=== PATIENT | male | born 1950 | race Caucasian/White ===

== ENCOUNTER 2017-07-13 11:40 | Inpatient (IN) | payer MEDICARE ==
[~2017-07-13] VITALS: Ht 188 cm; Wt 133.3 kg
[~2017-07-13 11:40] MED LIST: AMLO10 PO; ASPI81CH PO; FISH1000 PO; OLME40 PO
[2017-07-13 12:00] LABS: Chloride (POC) 104 mmol/L (98-108); Creatinine (POC) 1.1 mg/dL (0.8-1.3); Glucose (ISTAT POC) 98 mg/dL (70-99); Hemoglobin (POC) 16.7 g/dL (13.5-17.5); Potassium (POC) 3.6 mmol/L (3.5-5.5); Sodium (POC) 143 mmol/L (135-148); Total CO2 (POC) 27 mmol/L (21-32)
[2017-07-13 12:31] LABS: BASOPHILS ABSOLUTE AUTO 0.06 K/mm3 (0.00-0.23); BASOPHILS PERCENT AUTO 1 % (0-2); EOSINOPHILS ABSOLUTE AUTO 0.09 K/mm3 (0.00-0.68); EOSINOPHILS PERCENT AUTO 1 % (0-6); Hematocrit 45.7 % (37.0-53.0); Hemoglobin 15.4 g/dL (13.5-17.5); IMMATURE GRAN ABSOLUTE AUTO 0.01 K/mm3 (0.00-0.10); IMMATURE GRAN PERCENT AUTO 0 % (0-1); LYMPHOCYTES ABSOLUTE AUTO 2.73 K/mm3 (0.84-5.20); LYMPHOCYTES PERCENT AUTO 43 % (21-46); MONOCYTES ABSOLUTE AUTO 0.92 K/mm3 (0.16-1.47); MONOCYTES PERCENT AUTO 14 % (4-13); Mean Corpuscular HGB 35.4 pg (26.0-34.0); Mean Corpuscular HGB Conc 33.7 g/dL (31.5-36.5); Mean Corpuscular Volume 105 fL (80-100); Mean Platelet Volume 10.2 fL (9.1-12.4); NEUTROPHILS ABSOLUTE AUTO 2.56 K/mm3 (1.96-9.15); NEUTROPHILS PERCENT AUTO 40 % (41-73); RDW Coefficient Variation 14.7 % (11.7-14.2); RDW Standard Deviation 58.1 fL (35.1-46.3); Red Blood Cell Count 4.35 M/mm3 (4.30-5.90); White Blood Cell Count 6.37 K/mm3 (4.00-11.30)
[2017-07-13 12:34] LABS: Platelet Count 42 K/mm3 (150-400)
[2017-07-13 12:40] LABS: International Normalized Ratio 1.03; Prothrombin Time Results 10.7 Sec (9.7-11.5)
[2017-07-13 12:43] LABS: Alanine Aminotransfer (ALT/SGP 43 U/L (12-78); Albumin/Globulin Ratio 0.6 (0.8-1.8); Alk Phos 103 U/L (50-136); Anion Gap 10 mmol/L (6-16); Aspartate Aminotrans (AST/SGOT 69 U/L (12-37); Bilirubin, Total 0.8 mg/dL (0.1-1.0); Blood Urea Nitrogen 9 mg/dL (8-24); Bun/Creatinine Ratio 13.6 (12.0-20.0); CO2, Blood 27 mmol/L (21-32); Calcium, Blood 8.5 mg/dL (8.5-10.1); Chloride, Blood 106 mmol/L (98-108); Creatinine, Blood 0.66 mg/dL (0.60-1.20); Ethanol (Alcohol), Blood, Med 277 mg/dL; Globulin, Blood 4.7 g/dL (2.2-4.0); Glomerular Filtration Rate >60 (60-); Glucose, Blood 94 mg/dL (70-99); Potassium, Blood 3.5 mmol/L (3.5-5.5); Sodium, Blood 143 mmol/L (136-145); Total Protein, Blood 7.7 g/dL (6.4-8.2); Troponin I 0.026 ng/mL (0.000-0.040)
[2017-07-14 03:52] LABS: BASOPHILS ABSOLUTE AUTO 0.06 K/mm3 (0.00-0.23); BASOPHILS PERCENT AUTO 1 % (0-2); EOSINOPHILS ABSOLUTE AUTO 0.06 K/mm3 (0.00-0.68); EOSINOPHILS PERCENT AUTO 1 % (0-6); Hematocrit 46.8 % (37.0-53.0); Hemoglobin 16.2 g/dL (13.5-17.5); IMMATURE GRAN ABSOLUTE AUTO 0.02 K/mm3 (0.00-0.10); IMMATURE GRAN PERCENT AUTO 1 % (0-1); LYMPHOCYTES ABSOLUTE AUTO 0.73 K/mm3 (0.84-5.20); LYMPHOCYTES PERCENT AUTO 17 % (21-46); MONOCYTES ABSOLUTE AUTO 0.61 K/mm3 (0.16-1.47); MONOCYTES PERCENT AUTO 14 % (4-13); Mean Corpuscular HGB 35.6 pg (26.0-34.0); Mean Corpuscular HGB Conc 34.6 g/dL (31.5-36.5); Mean Corpuscular Volume 103 fL (80-100); NEUTROPHILS ABSOLUTE AUTO 2.82 K/mm3 (1.96-9.15); NEUTROPHILS PERCENT AUTO 66 % (41-73); RDW Coefficient Variation 14.5 % (11.7-14.2); RDW Standard Deviation 55.7 fL (35.1-46.3); Red Blood Cell Count 4.55 M/mm3 (4.30-5.90)
[2017-07-14 03:53] LABS: Mean Platelet Volume 10.1 fL (9.1-12.4)
[2017-07-14 03:54] LABS: Platelet Count 33 K/mm3 (150-400)
[2017-07-14 04:00] LABS: Anion Gap 14 mmol/L (6-16); Blood Urea Nitrogen 10 mg/dL (8-24); Bun/Creatinine Ratio 17.9 (12.0-20.0); CO2, Blood 23 mmol/L (21-32); Calcium, Blood 7.8 mg/dL (8.5-10.1); Chloride, Blood 107 mmol/L (98-108); Creatinine, Blood 0.56 mg/dL (0.60-1.20); Glomerular Filtration Rate >60 (60-); Glucose, Blood 64 mg/dL (70-99); Potassium, Blood 3.5 mmol/L (3.5-5.5); Sodium, Blood 144 mmol/L (136-145)
[2017-07-14 05:02] LABS: Source, Urine Catheter
[2017-07-14 05:17] LABS: Bilirubin, Urine Neg (Neg); Blood, Urine 5+ (Neg); Glucose Qualitative, Urine Neg (Neg); Ketones, Urine Neg (Neg); Leukocyte Esterase, Urine Neg (Neg); Nitrite, Urine Neg (Neg); Protein, Urine 3+ (Neg); Urobilinogen, Urine NORM (Normal)
[2017-07-14 05:22] LABS: Appearance, Urine Clear (Clear); Color, Urine Yellow (P-Yellow)
[2017-07-14 05:23] LABS: Red Blood Cells, Urine TNTC /hpf (0-2); White Blood Cells, Urine Not Seen /hpf (0-5)
[2017-07-14 05:24] LABS: Amorphous Mod (0-Heavy); Bacteria Not Seen /hpf; Squamous Epithelial Cells Not Seen /hpf (Few)
[2017-07-15 03:54] LABS: BASOPHILS ABSOLUTE AUTO 0.07 K/mm3 (0.00-0.23); BASOPHILS PERCENT AUTO 1 % (0-2); EOSINOPHILS ABSOLUTE AUTO 0.04 K/mm3 (0.00-0.68); EOSINOPHILS PERCENT AUTO 1 % (0-6); Hematocrit 46.5 % (37.0-53.0); IMMATURE GRAN ABSOLUTE AUTO 0.02 K/mm3 (0.00-0.10); IMMATURE GRAN PERCENT AUTO 0 % (0-1); LYMPHOCYTES ABSOLUTE AUTO 1.47 K/mm3 (0.84-5.20); LYMPHOCYTES PERCENT AUTO 23 % (21-46); MONOCYTES ABSOLUTE AUTO 0.98 K/mm3 (0.16-1.47); MONOCYTES PERCENT AUTO 15 % (4-13); Mean Corpuscular HGB 35.2 pg (26.0-34.0); Mean Corpuscular HGB Conc 34.4 g/dL (31.5-36.5); Mean Corpuscular Volume 102 fL (80-100); Mean Platelet Volume 11.1 fL (9.1-12.4); NEUTROPHILS ABSOLUTE AUTO 3.85 K/mm3 (1.96-9.15); NEUTROPHILS PERCENT AUTO 60 % (41-73); RDW Coefficient Variation 14.6 % (11.7-14.2); RDW Standard Deviation 55.3 fL (35.1-46.3); Red Blood Cell Count 4.55 M/mm3 (4.30-5.90); White Blood Cell Count 6.43 K/mm3 (4.00-11.30)
[2017-07-15 03:59] LABS: Platelet Count 38 K/mm3 (150-400)
[2017-07-15 04:10] LABS: Anion Gap 10 mmol/L (6-16); Blood Urea Nitrogen 16 mg/dL (8-24); Bun/Creatinine Ratio 25.1 (12.0-20.0); CO2, Blood 27 mmol/L (21-32); Calcium, Blood 7.8 mg/dL (8.5-10.1); Chloride, Blood 104 mmol/L (98-108); Creatinine, Blood 0.64 mg/dL (0.60-1.20); Glomerular Filtration Rate >60 (60-); Glucose, Blood 120 mg/dL (70-99); Potassium, Blood 3.1 mmol/L (3.5-5.5); Sodium, Blood 141 mmol/L (136-145)
[2017-07-16 04:17] LABS: BASOPHILS ABSOLUTE AUTO 0.06 K/mm3 (0.00-0.23); BASOPHILS PERCENT AUTO 1 % (0-2); EOSINOPHILS ABSOLUTE AUTO 0.03 K/mm3 (0.00-0.68); EOSINOPHILS PERCENT AUTO 0 % (0-6); Hemoglobin 16.4 g/dL (13.5-17.5); IMMATURE GRAN ABSOLUTE AUTO 0.04 K/mm3 (0.00-0.10); IMMATURE GRAN PERCENT AUTO 0 % (0-1); LYMPHOCYTES ABSOLUTE AUTO 2.07 K/mm3 (0.84-5.20); LYMPHOCYTES PERCENT AUTO 23 % (21-46); MONOCYTES ABSOLUTE AUTO 1.83 K/mm3 (0.16-1.47); MONOCYTES PERCENT AUTO 20 % (4-13); Mean Corpuscular HGB 35.7 pg (26.0-34.0); Mean Corpuscular HGB Conc 33.5 g/dL (31.5-36.5); Mean Platelet Volume 11.7 fL (9.1-12.4); NEUTROPHILS ABSOLUTE AUTO 4.95 K/mm3 (1.96-9.15); NEUTROPHILS PERCENT AUTO 55 % (41-73); RDW Standard Deviation 59.7 fL (35.1-46.3); Red Blood Cell Count 4.59 M/mm3 (4.30-5.90); White Blood Cell Count 8.98 K/mm3 (4.00-11.30)
[2017-07-16 04:18] LABS: Mean Corpuscular Volume 107 fL (80-100)
[2017-07-16 04:19] LABS: Platelet Count 38 K/mm3 (150-400)
[2017-07-16 04:39] LABS: Anion Gap 6 mmol/L (6-16); Blood Urea Nitrogen 18 mg/dL (8-24); Bun/Creatinine Ratio 21.3 (12.0-20.0); CO2, Blood 30 mmol/L (21-32); Chloride, Blood 107 mmol/L (98-108); Creatinine, Blood 0.85 mg/dL (0.60-1.20); Glomerular Filtration Rate >60 (60-); Glucose, Blood 110 mg/dL (70-99); Magnesium, Blood 1.5 mg/dL (1.6-2.4); Potassium, Blood 3.4 mmol/L (3.5-5.5); Sodium, Blood 143 mmol/L (136-145)
[2017-07-16 16:47] LABS: Magnesium, Blood 1.7 mg/dL (1.6-2.4); Potassium, Blood 3.5 mmol/L (3.5-5.5)
[2017-07-17 03:54] LABS: BASOPHILS ABSOLUTE AUTO 0.05 K/mm3 (0.00-0.23); BASOPHILS PERCENT AUTO 1 % (0-2); EOSINOPHILS ABSOLUTE AUTO 0.01 K/mm3 (0.00-0.68); EOSINOPHILS PERCENT AUTO 0 % (0-6); Hematocrit 48.5 % (37.0-53.0); Hemoglobin 16.3 g/dL (13.5-17.5); IMMATURE GRAN ABSOLUTE AUTO 0.06 K/mm3 (0.00-0.10); IMMATURE GRAN PERCENT AUTO 1 % (0-1); LYMPHOCYTES ABSOLUTE AUTO 1.86 K/mm3 (0.84-5.20); LYMPHOCYTES PERCENT AUTO 17 % (21-46); MONOCYTES ABSOLUTE AUTO 1.86 K/mm3 (0.16-1.47); MONOCYTES PERCENT AUTO 17 % (4-13); Mean Corpuscular HGB 35.6 pg (26.0-34.0); Mean Corpuscular HGB Conc 33.6 g/dL (31.5-36.5); Mean Corpuscular Volume 106 fL (80-100); Mean Platelet Volume 12.5 fL (9.1-12.4); NEUTROPHILS ABSOLUTE AUTO 6.84 K/mm3 (1.96-9.15); NEUTROPHILS PERCENT AUTO 64 % (41-73); RDW Coefficient Variation 15.1 % (11.7-14.2); RDW Standard Deviation 59.9 fL (35.1-46.3); Red Blood Cell Count 4.58 M/mm3 (4.30-5.90); White Blood Cell Count 10.68 K/mm3 (4.00-11.30)
[2017-07-17 03:55] LABS: Platelet Count 48 K/mm3 (150-400)
[2017-07-17 04:11] LABS: Alanine Aminotransfer (ALT/SGP 11 U/L (12-78); Albumin/Globulin Ratio 0.4 (0.8-1.8); Alk Phos 75 U/L (50-136); Anion Gap 7 mmol/L (6-16); Aspartate Aminotrans (AST/SGOT 23 U/L (12-37); Bilirubin, Total 1.4 mg/dL (0.1-1.0); Blood Urea Nitrogen 20 mg/dL (8-24); Bun/Creatinine Ratio 24.8 (12.0-20.0); CO2, Blood 27 mmol/L (21-32); Calcium, Blood 8.1 mg/dL (8.5-10.1); Chloride, Blood 111 mmol/L (98-108); Creatinine, Blood 0.81 mg/dL (0.60-1.20); Globulin, Blood 4.7 g/dL (2.2-4.0); Glomerular Filtration Rate >60 (60-); Glucose, Blood 124 mg/dL (70-99); Potassium, Blood 3.7 mmol/L (3.5-5.5); Sodium, Blood 145 mmol/L (136-145); Total Protein, Blood 6.7 g/dL (6.4-8.2)
[2017-07-18 04:57] LABS: BASOPHILS ABSOLUTE AUTO 0.06 K/mm3 (0.00-0.23); BASOPHILS PERCENT AUTO 1 % (0-2); EOSINOPHILS ABSOLUTE AUTO 0.02 K/mm3 (0.00-0.68); EOSINOPHILS PERCENT AUTO 0 % (0-6); Hematocrit 47.1 % (37.0-53.0); Hemoglobin 15.6 g/dL (13.5-17.5); IMMATURE GRAN ABSOLUTE AUTO 0.05 K/mm3 (0.00-0.10); IMMATURE GRAN PERCENT AUTO 1 % (0-1); LYMPHOCYTES ABSOLUTE AUTO 1.71 K/mm3 (0.84-5.20); LYMPHOCYTES PERCENT AUTO 19 % (21-46); MONOCYTES ABSOLUTE AUTO 1.72 K/mm3 (0.16-1.47); MONOCYTES PERCENT AUTO 19 % (4-13); Mean Corpuscular HGB Conc 33.1 g/dL (31.5-36.5); Mean Platelet Volume 11.8 fL (9.1-12.4); NEUTROPHILS ABSOLUTE AUTO 5.62 K/mm3 (1.96-9.15); NEUTROPHILS PERCENT AUTO 61 % (41-73); Platelet Count 57 K/mm3 (150-400); RDW Coefficient Variation 14.8 % (11.7-14.2); RDW Standard Deviation 60.5 fL (35.1-46.3); Red Blood Cell Count 4.33 M/mm3 (4.30-5.90); White Blood Cell Count 9.18 K/mm3 (4.00-11.30)
[2017-07-18 05:06] LABS: Mean Corpuscular Volume 109 fL (80-100)
[2017-07-18 05:12] LABS: Anion Gap 7 mmol/L (6-16); Blood Urea Nitrogen 21 mg/dL (8-24); Bun/Creatinine Ratio 28.3 (12.0-20.0); CO2, Blood 27 mmol/L (21-32); Chloride, Blood 114 mmol/L (98-108); Creatinine, Blood 0.74 mg/dL (0.60-1.20); Glomerular Filtration Rate >60 (60-); Glucose, Blood 99 mg/dL (70-99); Potassium, Blood 3.7 mmol/L (3.5-5.5); Sodium, Blood 148 mmol/L (136-145)
[2017-07-20 03:16] LABS: BASOPHILS ABSOLUTE AUTO 0.05 K/mm3 (0.00-0.23); BASOPHILS PERCENT AUTO 1 % (0-2); EOSINOPHILS ABSOLUTE AUTO 0.11 K/mm3 (0.00-0.68); EOSINOPHILS PERCENT AUTO 2 % (0-6); Hematocrit 42.2 % (37.0-53.0); Hemoglobin 13.7 g/dL (13.5-17.5); IMMATURE GRAN ABSOLUTE AUTO 0.05 K/mm3 (0.00-0.10); IMMATURE GRAN PERCENT AUTO 1 % (0-1); LYMPHOCYTES ABSOLUTE AUTO 0.81 K/mm3 (0.84-5.20); LYMPHOCYTES PERCENT AUTO 12 % (21-46); MONOCYTES ABSOLUTE AUTO 1.36 K/mm3 (0.16-1.47); MONOCYTES PERCENT AUTO 20 % (4-13); Mean Corpuscular HGB 35.5 pg (26.0-34.0); Mean Corpuscular HGB Conc 32.5 g/dL (31.5-36.5); Mean Corpuscular Volume 109 fL (80-100); Mean Platelet Volume 11.6 fL (9.1-12.4); NEUTROPHILS ABSOLUTE AUTO 4.55 K/mm3 (1.96-9.15); NEUTROPHILS PERCENT AUTO 66 % (41-73); Platelet Count 83 K/mm3 (150-400); RDW Coefficient Variation 14.4 % (11.7-14.2); RDW Standard Deviation 58.4 fL (35.1-46.3); Red Blood Cell Count 3.86 M/mm3 (4.30-5.90); White Blood Cell Count 6.93 K/mm3 (4.00-11.30)
[2017-07-20 03:28] LABS: Anion Gap 5 mmol/L (6-16); Blood Urea Nitrogen 14 mg/dL (8-24); Bun/Creatinine Ratio 22.9 (12.0-20.0); CO2, Blood 31 mmol/L (21-32); Chloride, Blood 111 mmol/L (98-108); Creatinine, Blood 0.61 mg/dL (0.60-1.20); Glomerular Filtration Rate >60 (60-); Glucose, Blood 112 mg/dL (70-99); Magnesium, Blood 1.5 mg/dL (1.6-2.4); Phosphorus, Blood 3.1 mg/dL (2.5-4.9); Potassium, Blood 3.5 mmol/L (3.5-5.5); Sodium, Blood 147 mmol/L (136-145); Triglycerides 71 mg/dL (30-160)
[2017-07-21 03:56] LABS: BASOPHILS ABSOLUTE AUTO 0.04 K/mm3 (0.00-0.23); BASOPHILS PERCENT AUTO 1 % (0-2); EOSINOPHILS ABSOLUTE AUTO 0.03 K/mm3 (0.00-0.68); EOSINOPHILS PERCENT AUTO 0 % (0-6); Hematocrit 41.1 % (37.0-53.0); Hemoglobin 13.6 g/dL (13.5-17.5); IMMATURE GRAN ABSOLUTE AUTO 0.07 K/mm3 (0.00-0.10); IMMATURE GRAN PERCENT AUTO 1 % (0-1); LYMPHOCYTES ABSOLUTE AUTO 1.16 K/mm3 (0.84-5.20); LYMPHOCYTES PERCENT AUTO 14 % (21-46); MONOCYTES ABSOLUTE AUTO 1.61 K/mm3 (0.16-1.47); MONOCYTES PERCENT AUTO 19 % (4-13); Mean Corpuscular HGB 35.8 pg (26.0-34.0); Mean Corpuscular HGB Conc 33.1 g/dL (31.5-36.5); Mean Corpuscular Volume 108 fL (80-100); Mean Platelet Volume 11.9 fL (9.1-12.4); NEUTROPHILS ABSOLUTE AUTO 5.41 K/mm3 (1.96-9.15); NEUTROPHILS PERCENT AUTO 65 % (41-73); Platelet Count 121 K/mm3 (150-400); RDW Coefficient Variation 14.1 % (11.7-14.2); RDW Standard Deviation 56.9 fL (35.1-46.3); White Blood Cell Count 8.32 K/mm3 (4.00-11.30)
[2017-07-21 04:11] LABS: Anion Gap 4 mmol/L (6-16); Blood Urea Nitrogen 11 mg/dL (8-24); Bun/Creatinine Ratio 16.1 (12.0-20.0); CO2, Blood 33 mmol/L (21-32); Calcium, Blood 7.9 mg/dL (8.5-10.1); Chloride, Blood 107 mmol/L (98-108); Creatinine, Blood 0.68 mg/dL (0.60-1.20); Glomerular Filtration Rate >60 (60-); Glucose, Blood 116 mg/dL (70-99); Magnesium, Blood 1.5 mg/dL (1.6-2.4); Phosphorus, Blood 2.1 mg/dL (2.5-4.9); Potassium, Blood 3.4 mmol/L (3.5-5.5); Sodium, Blood 144 mmol/L (136-145)
[2017-07-22 03:56] LABS: BASOPHILS ABSOLUTE AUTO 0.06 K/mm3 (0.00-0.23); BASOPHILS PERCENT AUTO 1 % (0-2); EOSINOPHILS ABSOLUTE AUTO 0.07 K/mm3 (0.00-0.68); EOSINOPHILS PERCENT AUTO 1 % (0-6); Hematocrit 37.2 % (37.0-53.0); Hemoglobin 12.2 g/dL (13.5-17.5); IMMATURE GRAN ABSOLUTE AUTO 0.05 K/mm3 (0.00-0.10); IMMATURE GRAN PERCENT AUTO 1 % (0-1); LYMPHOCYTES ABSOLUTE AUTO 1.51 K/mm3 (0.84-5.20); LYMPHOCYTES PERCENT AUTO 17 % (21-46); MONOCYTES ABSOLUTE AUTO 1.68 K/mm3 (0.16-1.47); MONOCYTES PERCENT AUTO 19 % (4-13); Mean Corpuscular HGB 35.9 pg (26.0-34.0); Mean Corpuscular HGB Conc 32.8 g/dL (31.5-36.5); Mean Corpuscular Volume 109 fL (80-100); Mean Platelet Volume 12.2 fL (9.1-12.4); NEUTROPHILS ABSOLUTE AUTO 5.34 K/mm3 (1.96-9.15); NEUTROPHILS PERCENT AUTO 61 % (41-73); Platelet Count 129 K/mm3 (150-400); RDW Coefficient Variation 13.9 % (11.7-14.2); RDW Standard Deviation 56.1 fL (35.1-46.3); White Blood Cell Count 8.71 K/mm3 (4.00-11.30)
[2017-07-22 04:15] LABS: Anion Gap 3 mmol/L (6-16); Blood Urea Nitrogen 11 mg/dL (8-24); Bun/Creatinine Ratio 19.2 (12.0-20.0); CO2, Blood 32 mmol/L (21-32); Calcium, Blood 7.8 mg/dL (8.5-10.1); Chloride, Blood 106 mmol/L (98-108); Creatinine, Blood 0.57 mg/dL (0.60-1.20); Glomerular Filtration Rate >60 (60-); Glucose, Blood 107 mg/dL (70-99); Magnesium, Blood 1.5 mg/dL (1.6-2.4); Phosphorus, Blood 2.5 mg/dL (2.5-4.9); Potassium, Blood 3.2 mmol/L (3.5-5.5); Sodium, Blood 141 mmol/L (136-145)
[2017-07-23 03:47] LABS: BASOPHILS ABSOLUTE AUTO 0.05 K/mm3 (0.00-0.23); BASOPHILS PERCENT AUTO 1 % (0-2); EOSINOPHILS ABSOLUTE AUTO 0.11 K/mm3 (0.00-0.68); EOSINOPHILS PERCENT AUTO 1 % (0-6); Hematocrit 35.7 % (37.0-53.0); Hemoglobin 11.7 g/dL (13.5-17.5); IMMATURE GRAN ABSOLUTE AUTO 0.05 K/mm3 (0.00-0.10); IMMATURE GRAN PERCENT AUTO 1 % (0-1); LYMPHOCYTES ABSOLUTE AUTO 1.26 K/mm3 (0.84-5.20); LYMPHOCYTES PERCENT AUTO 15 % (21-46); MONOCYTES ABSOLUTE AUTO 1.19 K/mm3 (0.16-1.47); MONOCYTES PERCENT AUTO 14 % (4-13); Mean Corpuscular HGB 35.7 pg (26.0-34.0); Mean Corpuscular HGB Conc 32.8 g/dL (31.5-36.5); Mean Corpuscular Volume 109 fL (80-100); Mean Platelet Volume 12.2 fL (9.1-12.4); NEUTROPHILS ABSOLUTE AUTO 5.87 K/mm3 (1.96-9.15); NEUTROPHILS PERCENT AUTO 69 % (41-73); Platelet Count 157 K/mm3 (150-400); RDW Coefficient Variation 13.7 % (11.7-14.2); RDW Standard Deviation 55.9 fL (35.1-46.3); Red Blood Cell Count 3.28 M/mm3 (4.30-5.90); White Blood Cell Count 8.53 K/mm3 (4.00-11.30)
[2017-07-23 04:04] LABS: Albumin, Blood 1.4 g/dL (3.4-5.0); Anion Gap 6 mmol/L (6-16); Blood Urea Nitrogen 10 mg/dL (8-24); Bun/Creatinine Ratio 16.9 (12.0-20.0); CO2, Blood 32 mmol/L (21-32); Calcium, Blood 7.8 mg/dL (8.5-10.1); Chloride, Blood 104 mmol/L (98-108); Creatinine, Blood 0.59 mg/dL (0.60-1.20); Glomerular Filtration Rate >60 (60-); Glucose, Blood 105 mg/dL (70-99); Phosphorus, Blood 2.9 mg/dL (2.5-4.9); Potassium, Blood 3.4 mmol/L (3.5-5.5); Sodium, Blood 142 mmol/L (136-145)
[2017-07-24 04:07] LABS: Hematocrit 38.3 % (37.0-53.0); Hemoglobin 12.3 g/dL (13.5-17.5); Mean Corpuscular HGB 34.7 pg (26.0-34.0); Mean Corpuscular HGB Conc 32.1 g/dL (31.5-36.5); Mean Corpuscular Volume 108 fL (80-100); Platelet Count 204 K/mm3 (150-400); RDW Coefficient Variation 13.6 % (11.7-14.2); RDW Standard Deviation 55.4 fL (35.1-46.3); Red Blood Cell Count 3.54 M/mm3 (4.30-5.90); White Blood Cell Count 7.66 K/mm3 (4.00-11.30)
[2017-07-24 04:28] LABS: Anion Gap 5 mmol/L (6-16); Blood Urea Nitrogen 10 mg/dL (8-24); Bun/Creatinine Ratio 17.2 (12.0-20.0); CO2, Blood 33 mmol/L (21-32); Calcium, Blood 8.3 mg/dL (8.5-10.1); Chloride, Blood 103 mmol/L (98-108); Creatinine, Blood 0.58 mg/dL (0.60-1.20); Glomerular Filtration Rate >60 (60-); Glucose, Blood 101 mg/dL (70-99); Magnesium, Blood 1.6 mg/dL (1.6-2.4); Potassium, Blood 3.8 mmol/L (3.5-5.5); Sodium, Blood 141 mmol/L (136-145)
[2017-07-25 03:51] LABS: BASOPHILS ABSOLUTE AUTO 0.06 K/mm3 (0.00-0.23); BASOPHILS PERCENT AUTO 1 % (0-2); EOSINOPHILS PERCENT AUTO 1 % (0-6); Hematocrit 39.5 % (37.0-53.0); IMMATURE GRAN ABSOLUTE AUTO 0.05 K/mm3 (0.00-0.10); IMMATURE GRAN PERCENT AUTO 1 % (0-1); LYMPHOCYTES ABSOLUTE AUTO 1.21 K/mm3 (0.84-5.20); LYMPHOCYTES PERCENT AUTO 15 % (21-46); MONOCYTES ABSOLUTE AUTO 0.96 K/mm3 (0.16-1.47); MONOCYTES PERCENT AUTO 12 % (4-13); Mean Corpuscular HGB 35.7 pg (26.0-34.0); Mean Corpuscular HGB Conc 32.9 g/dL (31.5-36.5); Mean Corpuscular Volume 109 fL (80-100); NEUTROPHILS ABSOLUTE AUTO 5.98 K/mm3 (1.96-9.15); NEUTROPHILS PERCENT AUTO 72 % (41-73); Platelet Count 229 K/mm3 (150-400); RDW Coefficient Variation 13.6 % (11.7-14.2); RDW Standard Deviation 55.1 fL (35.1-46.3); Red Blood Cell Count 3.64 M/mm3 (4.30-5.90); White Blood Cell Count 8.36 K/mm3 (4.00-11.30)
[2017-07-25 04:09] LABS: Alanine Aminotransfer (ALT/SGP 8 U/L (12-78); Albumin, Blood 1.6 g/dL (3.4-5.0); Albumin/Globulin Ratio 0.4 (0.8-1.8); Alk Phos 75 U/L (50-136); Anion Gap 5 mmol/L (6-16); Aspartate Aminotrans (AST/SGOT 23 U/L (12-37); Bilirubin, Total 0.7 mg/dL (0.1-1.0); Blood Urea Nitrogen 12 mg/dL (8-24); CO2, Blood 33 mmol/L (21-32); Calcium, Blood 8.3 mg/dL (8.5-10.1); Chloride, Blood 103 mmol/L (98-108); Globulin, Blood 4.5 g/dL (2.2-4.0); Glomerular Filtration Rate >60 (60-); Glucose, Blood 109 mg/dL (70-99); Magnesium, Blood 1.6 mg/dL (1.6-2.4); Phosphorus, Blood 2.9 mg/dL (2.5-4.9); Potassium, Blood 3.9 mmol/L (3.5-5.5); Sodium, Blood 141 mmol/L (136-145); Total Protein, Blood 6.1 g/dL (6.4-8.2)
[2017-07-26 04:50] LABS: BASOPHILS ABSOLUTE AUTO 0.06 K/mm3 (0.00-0.23); BASOPHILS PERCENT AUTO 1 % (0-2); EOSINOPHILS ABSOLUTE AUTO 0.18 K/mm3 (0.00-0.68); EOSINOPHILS PERCENT AUTO 2 % (0-6); Hematocrit 38.9 % (37.0-53.0); Hemoglobin 12.8 g/dL (13.5-17.5); IMMATURE GRAN ABSOLUTE AUTO 0.07 K/mm3 (0.00-0.10); IMMATURE GRAN PERCENT AUTO 1 % (0-1); LYMPHOCYTES ABSOLUTE AUTO 2.24 K/mm3 (0.84-5.20); LYMPHOCYTES PERCENT AUTO 24 % (21-46); MONOCYTES ABSOLUTE AUTO 1.23 K/mm3 (0.16-1.47); MONOCYTES PERCENT AUTO 13 % (4-13); Mean Corpuscular HGB 35.5 pg (26.0-34.0); Mean Corpuscular HGB Conc 32.9 g/dL (31.5-36.5); Mean Corpuscular Volume 108 fL (80-100); Mean Platelet Volume 11.7 fL (9.1-12.4); NEUTROPHILS ABSOLUTE AUTO 5.41 K/mm3 (1.96-9.15); NEUTROPHILS PERCENT AUTO 59 % (41-73); Platelet Count 278 K/mm3 (150-400); RDW Coefficient Variation 13.3 % (11.7-14.2); Red Blood Cell Count 3.61 M/mm3 (4.30-5.90); White Blood Cell Count 9.19 K/mm3 (4.00-11.30)
[2017-07-26 05:12] LABS: Anion Gap 6 mmol/L (6-16); Blood Urea Nitrogen 10 mg/dL (8-24); CO2, Blood 31 mmol/L (21-32); Calcium, Blood 8.4 mg/dL (8.5-10.1); Chloride, Blood 103 mmol/L (98-108); Creatinine, Blood 0.59 mg/dL (0.60-1.20); Glomerular Filtration Rate >60 (60-); Glucose, Blood 92 mg/dL (70-99); Potassium, Blood 3.7 mmol/L (3.5-5.5); Sodium, Blood 140 mmol/L (136-145)
[2017-07-27 09:57] LABS: Triglycerides 71 mg/dL (30-160)
[2017-07-30 06:34] LABS: Hemoglobin 12.4 g/dL (13.5-17.5); Mean Corpuscular HGB 35.6 pg (26.0-34.0); Mean Corpuscular HGB Conc 33.5 g/dL (31.5-36.5); Mean Corpuscular Volume 106 fL (80-100); Mean Platelet Volume 10.8 fL (9.1-12.4); Platelet Count 301 K/mm3 (150-400); RDW Coefficient Variation 13.2 % (11.7-14.2); RDW Standard Deviation 52.7 fL (35.1-46.3); Red Blood Cell Count 3.48 M/mm3 (4.30-5.90); White Blood Cell Count 10.33 K/mm3 (4.00-11.30)
[2017-07-30 06:54] LABS: Anion Gap 6 mmol/L (6-16); Blood Urea Nitrogen 12 mg/dL (8-24); Bun/Creatinine Ratio 15.5 (12.0-20.0); CO2, Blood 30 mmol/L (21-32); Calcium, Blood 8.3 mg/dL (8.5-10.1); Chloride, Blood 104 mmol/L (98-108); Creatinine, Blood 0.78 mg/dL (0.60-1.20); Glomerular Filtration Rate >60 (60-); Glucose, Blood 89 mg/dL (70-99); Potassium, Blood 3.9 mmol/L (3.5-5.5); Sodium, Blood 140 mmol/L (136-145)
[2017-08-01 14:41] LABS: Source, Urine Catheter
[2017-08-01 14:48] LABS: Blood, Urine 5+ (Neg); Glucose Qualitative, Urine Neg (Neg); Ketones, Urine Neg (Neg); Leukocyte Esterase, Urine Neg (Neg); Nitrite, Urine Neg (Neg); Protein, Urine 3+ (Neg); Specific Gravity, Urine 1.015 (1.003-1.022); Urobilinogen, Urine 3+ (Normal)
[2017-08-01 15:00] LABS: Appearance, Urine Hazy (Clear); Color, Urine Amber (P-Yellow)
[2017-08-01 15:02] LABS: Bacteria Not Seen /hpf; Red Blood Cells, Urine TNTC /hpf (0-2); Squamous Epithelial Cells Not Seen /hpf (Few); White Blood Cells, Urine 0-2 /hpf (0-5)
[2017-08-03 05:17] LABS: BASOPHILS ABSOLUTE AUTO 0.07 K/mm3 (0.00-0.23); BASOPHILS PERCENT AUTO 1 % (0-2); EOSINOPHILS ABSOLUTE AUTO 0.22 K/mm3 (0.00-0.68); EOSINOPHILS PERCENT AUTO 2 % (0-6); Hematocrit 37.9 % (37.0-53.0); Hemoglobin 12.7 g/dL (13.5-17.5); IMMATURE GRAN ABSOLUTE AUTO 0.06 K/mm3 (0.00-0.10); IMMATURE GRAN PERCENT AUTO 1 % (0-1); LYMPHOCYTES ABSOLUTE AUTO 1.73 K/mm3 (0.84-5.20); LYMPHOCYTES PERCENT AUTO 18 % (21-46); MONOCYTES ABSOLUTE AUTO 0.91 K/mm3 (0.16-1.47); MONOCYTES PERCENT AUTO 10 % (4-13); Mean Corpuscular HGB 35.3 pg (26.0-34.0); Mean Corpuscular HGB Conc 33.5 g/dL (31.5-36.5); Mean Corpuscular Volume 105 fL (80-100); Mean Platelet Volume 10.8 fL (9.1-12.4); NEUTROPHILS ABSOLUTE AUTO 6.53 K/mm3 (1.96-9.15); NEUTROPHILS PERCENT AUTO 69 % (41-73); Platelet Count 213 K/mm3 (150-400); RDW Standard Deviation 50.4 fL (35.1-46.3); White Blood Cell Count 9.52 K/mm3 (4.00-11.30)
[2017-08-03 05:54] LABS: Anion Gap 10 mmol/L (6-16); Blood Urea Nitrogen 16 mg/dL (8-24); Bun/Creatinine Ratio 20.5 (12.0-20.0); CO2, Blood 26 mmol/L (21-32); Calcium, Blood 8.5 mg/dL (8.5-10.1); Chloride, Blood 106 mmol/L (98-108); Creatinine, Blood 0.78 mg/dL (0.60-1.20); Glomerular Filtration Rate >60 (60-); Glucose, Blood 95 mg/dL (70-99); Potassium, Blood 3.6 mmol/L (3.5-5.5); Sodium, Blood 142 mmol/L (136-145)
[2017-08-03 07:02] LABS: Source, Urine Catheter
[2017-08-03 07:06] LABS: Blood, Urine 5+ (Neg); Glucose Qualitative, Urine Neg (Neg); Ketones, Urine Neg (Neg); Leukocyte Esterase, Urine 2+ (Neg); Nitrite, Urine Neg (Neg); Protein, Urine 3+ (Neg); Specific Gravity, Urine 1.015 (1.003-1.022); Urobilinogen, Urine 2+ (Normal)
[2017-08-03 07:13] LABS: Appearance, Urine Cloudy (Clear); Bilirubin, Urine 1+ (Neg); Color, Urine Amber (P-Yellow)
[2017-08-03 07:16] LABS: Red Blood Cells, Urine TNTC /hpf (0-2)
[2017-08-03 07:19] LABS: Bacteria Few /hpf; Squamous Epithelial Cells Few /hpf (Few)
[2017-08-04 06:25] LABS: Hematocrit 41.7 % (37.0-53.0); Hemoglobin 13.8 g/dL (13.5-17.5); Mean Corpuscular HGB 34.7 pg (26.0-34.0); Mean Corpuscular HGB Conc 33.1 g/dL (31.5-36.5); Mean Corpuscular Volume 105 fL (80-100); Mean Platelet Volume 11.1 fL (9.1-12.4); Platelet Count 217 K/mm3 (150-400); RDW Standard Deviation 50.2 fL (35.1-46.3); Red Blood Cell Count 3.98 M/mm3 (4.30-5.90); White Blood Cell Count 9.94 K/mm3 (4.00-11.30)
[2017-08-05 05:19] LABS: Hematocrit 38.7 % (37.0-53.0); Hemoglobin 12.8 g/dL (13.5-17.5); Mean Corpuscular HGB 34.6 pg (26.0-34.0); Mean Corpuscular HGB Conc 33.1 g/dL (31.5-36.5); Mean Corpuscular Volume 105 fL (80-100); Mean Platelet Volume 11.3 fL (9.1-12.4); Platelet Count 200 K/mm3 (150-400); RDW Standard Deviation 50.3 fL (35.1-46.3); White Blood Cell Count 9.55 K/mm3 (4.00-11.30)
[2017-08-05 05:52] LABS: Anion Gap 11 mmol/L (6-16); Blood Urea Nitrogen 12 mg/dL (8-24); Bun/Creatinine Ratio 14.2 (12.0-20.0); CO2, Blood 28 mmol/L (21-32); Calcium, Blood 8.7 mg/dL (8.5-10.1); Chloride, Blood 105 mmol/L (98-108); Creatinine, Blood 0.85 mg/dL (0.60-1.20); Glomerular Filtration Rate >60 (60-); Glucose, Blood 88 mg/dL (70-99); Potassium, Blood 3.6 mmol/L (3.5-5.5); Prealbumin, Blood 10.7 mg/dL (20.0-40.0); Sodium, Blood 144 mmol/L (136-145)
[2017-08-06 17:24] LABS: Source, Urine Catheter
[2017-08-06 17:30] LABS: Appearance, Urine Hazy (Clear); Blood, Urine 5+ (Neg); Color, Urine Yellow (P-Yellow); Glucose Qualitative, Urine Neg (Neg); Ketones, Urine 1+ (Neg); Leukocyte Esterase, Urine 1+ (Neg); Nitrite, Urine Neg (Neg); Protein, Urine 2+ (Neg); Urobilinogen, Urine 2+ (Normal)
[2017-08-06 17:36] LABS: Bilirubin, Urine 1+ (Neg)
[2017-08-06 17:39] LABS: Bacteria Mod /hpf; Red Blood Cells, Urine 25-50 /hpf (0-2); Squamous Epithelial Cells Few /hpf (Few)
[2017-08-07] MEDS ORDERED: ACET325 PO (08:55)
[2017-08-07] MEDS ORDERED: FAMO20 PO (08:56)
[2017-08-07] MEDS ORDERED: SANTYL30 GM TOP (08:56)
[2017-08-07] MEDS ORDERED: CYAFAPYR (08:57)
[2017-08-07] MEDS ORDERED: CYAFAPYR PO (08:57)
[2017-08-07] MEDS ORDERED: LEVFLO500 PO (08:58)
[2017-08-07] MEDS ORDERED: LOSA25 PO (08:59)
[2017-08-07] MEDS ORDERED: LORA1 PO (08:59)
[2017-08-07] MEDS ORDERED: CENTRUM SILVER1 EAC2 PO (09:00)
[2017-08-07] MEDS ORDERED: METO25 PO (09:00)
[2017-08-07] MEDS ORDERED: GAVILAX17 GM PO (09:01)
== END 2017-08-07 09:19 | disposition hospice, home (50) | DRG 897 ==
LOC: ER 11:40 → ICUE 15:30 → MEDS 15:30 → ICUW 15:30 → ICUE 15:50 → MEDS 07-26 17:07
PROVIDERS: Family Medicine; Hospitalist; Internal Medicine; Internal Medicine Critical Care Medicine; Internal Medicine Pulmonary Disease; Physician Assistant
DX: F10.231 Alcohol dependence with withdrawal delirium (principal); L03.116 Cellulitis of left lower limb; I42.6 Alcoholic cardiomyopathy; I42.0 Dilated cardiomyopathy; L97.422 Non-pressure chronic ulcer of left heel and midfoot with fat layer exposed; N39.0 Urinary tract infection, site not specified; I50.20 Unspecified systolic (congestive) heart failure; I11.0 Hypertensive heart disease with heart failure; Z87.891 Personal history of nicotine dependence; D69.6 Thrombocytopenia, unspecified; E87.6 Hypokalemia; E83.42 Hypomagnesemia; G62.9 Polyneuropathy, unspecified; I87.2 Venous insufficiency (chronic) (peripheral); R31.9 Hematuria, unspecified; F10.27 Alcohol dependence with alcohol-induced persisting dementia; B95.62 Methicillin resistant Staphylococcus aureus infection as the cause of diseases classified elsewhere; I49.5 Sick sinus syndrome; Z91.19 Patient's noncompliance with other medical treatment and regimen; R23.4 Changes in skin texture; I80.8 Phlebitis and thrombophlebitis of other sites; E66.9 Obesity, unspecified; Z78.1 Physical restraint status; I95.9 Hypotension, unspecified
CPT/HCPCS: 36415; 36569; 51701; 51702; 70450; 71045; 71046; 73610; 74018; 76770; 80047; 80048; 80053; 80069; 81001; 82040; 82140; 82947; 83605; 83690; 83735; 83880; 84100; 84132; 84134; 84443; 84478; 84484; 85014; 85025; 85027; 85610; 87040; 87070; 87077; 87086; 87186; 87205; 92526; 92610; 93005; 93010; 93306; 93971; 96365; 97110; 97161; 97166; 97530; 97535; 99285; C1751; G0480; G8978; G8979; G8987; G8988; G8996; G8997; G8998; J0360; J0690; J0696; J1650; J1940; J2001; J2060; J2543; J3370; J3411; J3475; J3480; J7030; J7050; J7060; J7120

== ENCOUNTER 2018-12-12 17:50 | Emergency (ER) | payer MEDICARE ==
[~2018-12-12] VITALS: Ht 188 cm; Wt 127.0 kg
[~2018-12-12 17:50] MED LIST changes: +ACET325 PO; +CENTRUM SILVER1 EAC2 PO; +CYAFAPYR; +CYAFAPYR PO; +FAMO20 PO; +GAVILAX17 GM PO; +LEVFLO500 PO; +LORA1 PO; +LOSA25 PO; +METO25 PO; +SANTYL30 GM TOP
[2018-12-12] MEDS ORDERED: XARELTO15 MG PO (20:24)
[2018-12-12] MEDS ORDERED: Bisoprolol-Hct1 EACH PO (20:26)
[2018-12-12] MEDS ORDERED: FURO40 PO (20:26)
[2018-12-12] MEDS ORDERED: POTA10T PO (20:27)
== END 2018-12-12 21:05 | disposition short-term general hospital (02) ==
LOC: ER 17:50
DX: T25.322A Burn of third degree of left foot, initial encounter (principal); T31.0 Burns involving less than 10% of body surface; I10 Essential (primary) hypertension; Z87.891 Personal history of nicotine dependence; Z79.899 Other long term (current) drug therapy; X11.8XXA Contact with other hot tap-water, initial encounter
CPT/HCPCS: 16020; 36415; 90471; 90714; 96365-59; 99284-25; J0696

== ENCOUNTER 2019-01-03 09:28 | Day surgery (SDC) | payer MEDICARE ==
[~2019-01-03 09:28] MED LIST changes: -CENTRUM SILVER1 EAC2 PO; +FURO40 PO; -LOSA25 PO; +LOSA50 PO; +POTA10T PO; +THERA1 EACH PO; +XARELTO15 MG PO; +Ziac 5-6.25 MG1 EACH PO
== END 2019-01-03 22:42 | disposition home or self-care (01) ==
LOC: WOUND 09:28
DX: L97.529 Non-pressure chronic ulcer of other part of left foot with unspecified severity (principal); S91.105A Unspecified open wound of left lesser toe(s) without damage to nail, initial encounter; S91.102A Unspecified open wound of left great toe without damage to nail, initial encounter; E78.5 Hyperlipidemia, unspecified; I50.9 Heart failure, unspecified; E66.9 Obesity, unspecified; G62.1 Alcoholic polyneuropathy; M21.172 Varus deformity, not elsewhere classified, left ankle; Z79.899 Other long term (current) drug therapy; Z79.01 Long term (current) use of anticoagulants
CPT/HCPCS: G0463

== ENCOUNTER 2019-01-19 00:16 | Day surgery (SDC) | payer MEDICARE ==
[~2019-01-19 00:16] MED LIST changes: +Bisoprolol-Hct1 EACH PO; +CENTRUM SILVER1 EAC2 PO; +LOSA25 PO; -LOSA50 PO; -THERA1 EACH PO; -Ziac 5-6.25 MG1 EACH PO
== END 2019-01-19 22:44 | disposition home or self-care (01) ==
LOC: WOUND 00:16
DX: S91.301D Unspecified open wound, right foot, subsequent encounter (principal); E78.5 Hyperlipidemia, unspecified; I50.9 Heart failure, unspecified; E66.9 Obesity, unspecified; G47.30 Sleep apnea, unspecified; Z68.36 Body mass index [BMI] 36.0-36.9, adult; Z79.899 Other long term (current) drug therapy
CPT/HCPCS: G0463

== ENCOUNTER → 2019-01-28 | Outpatient (CLI) | payer MEDICARE ==
[~2019-01-28] MED LIST changes: +Aspir 8181 MG PO; -Bisoprolol-Hct1 EACH PO; -CENTRUM SILVER1 EAC2 PO; -LOSA25 PO; +LOSA50 PO; +PROSVENT PO; +THERA1 EACH PO; +Ziac 5-6.25 MG1 EACH PO
== END | disposition home or self-care (01) ==
LOC: LAB SHORT 13:26 → LAB 13:26
DX: L08.9 Local infection of the skin and subcutaneous tissue, unspecified (principal); L89.892 Pressure ulcer of other site, stage 2
CPT/HCPCS: 87070; 87077; 87186; 87205

== ENCOUNTER 2019-02-18 08:49 | Emergency (ER) | payer MEDICARE ==
[~2019-02-18] VITALS: Ht 188 cm; Wt 127.0 kg
[~2019-02-18 08:49] MED LIST changes: -Aspir 8181 MG PO; -PROSVENT PO
[2019-02-18 09:40] LABS: BASOPHILS ABSOLUTE AUTO 0.07 K/mm3 (0.00-0.23); BASOPHILS PERCENT AUTO 1 % (0-2); EOSINOPHILS ABSOLUTE AUTO 0.11 K/mm3 (0.00-0.68); EOSINOPHILS PERCENT AUTO 1 % (0-6); Hematocrit 41.2 % (37.0-53.0); Hemoglobin 13.7 g/dL (13.5-17.5); IMMATURE GRAN ABSOLUTE AUTO 0.11 K/mm3 (0.00-0.10); IMMATURE GRAN PERCENT AUTO 1 % (0-1); LYMPHOCYTES ABSOLUTE AUTO 3.13 K/mm3 (0.84-5.20); LYMPHOCYTES PERCENT AUTO 25 % (21-46); MONOCYTES ABSOLUTE AUTO 1.47 K/mm3 (0.16-1.47); MONOCYTES PERCENT AUTO 12 % (4-13); Mean Corpuscular HGB 32.7 pg (26.0-34.0); Mean Corpuscular HGB Conc 33.3 g/dL (31.5-36.5); Mean Corpuscular Volume 98 fL (80-100); Mean Platelet Volume 10.3 fL (9.1-12.4); NEUTROPHILS ABSOLUTE AUTO 7.72 K/mm3 (1.96-9.15); NEUTROPHILS PERCENT AUTO 61 % (41-73); Platelet Count 156 K/mm3 (150-400); RDW Coefficient Variation 15.4 % (11.7-14.2); RDW Standard Deviation 55.5 fL (35.1-46.3); Red Blood Cell Count 4.19 M/mm3 (4.30-5.90); White Blood Cell Count 12.61 K/mm3 (4.00-11.30)
[2019-02-18 09:52] LABS: Alanine Aminotransfer (ALT/SGP 13 U/L (12-78); Albumin, Blood 3.1 g/dL (3.4-5.0); Albumin/Globulin Ratio 0.7 (0.8-1.8); Alk Phos 68 U/L (50-136); Anion Gap 7 mmol/L (6-16); Aspartate Aminotrans (AST/SGOT 14 U/L (12-37); Bilirubin, Total 0.6 mg/dL (0.1-1.0); Blood Urea Nitrogen 16 mg/dL (8-24); Bun/Creatinine Ratio 14.5 (12.0-20.0); CO2, Blood 29 mmol/L (21-32); Calcium, Blood 8.6 mg/dL (8.5-10.1); Chloride, Blood 100 mmol/L (98-108); Globulin, Blood 4.6 g/dL (2.2-4.0); Glomerular Filtration Rate >60 (60-); Glucose, Blood 97 mg/dL (70-99); Potassium, Blood 3.5 mmol/L (3.5-5.5); Sodium, Blood 136 mmol/L (136-145); Total Protein, Blood 7.7 g/dL (6.4-8.2)
[2019-02-18] MEDS ORDERED: PROSVENT PO (13:26)
[2019-02-18] MEDS ORDERED: Aspir 8181 MG PO (13:26)
== END 2019-02-18 14:45 | disposition short-term general hospital (02) ==
LOC: ER 08:49
PROVIDERS: Emergency Medicine
DX: A48.0 Gas gangrene (principal); L03.116 Cellulitis of left lower limb; I83.92 Asymptomatic varicose veins of left lower extremity; L97.529 Non-pressure chronic ulcer of other part of left foot with unspecified severity; I10 Essential (primary) hypertension; Z79.899 Other long term (current) drug therapy; Z87.891 Personal history of nicotine dependence
CPT/HCPCS: 36415; 73630; 80053; 83605; 83880; 85025; 87040; 87070; 87077; 87147; 87186; 87205; 90471; 90714; 93005; 93010; 93971; 96361; 96365; 96375; 99285-25; J2543; J3370; J7050; J7120

== ENCOUNTER 2019-06-16 00:14 | Day surgery (SDC) | payer MEDICARE ==
[~2019-06-16 00:14] MED LIST changes: +Aspir 8181 MG PO; +PROSVENT PO
== END 2019-06-16 22:48 | disposition home or self-care (01) ==
LOC: WOUND 00:14
DX: L97.523 Non-pressure chronic ulcer of other part of left foot with necrosis of muscle (principal); I87.2 Venous insufficiency (chronic) (peripheral); E78.5 Hyperlipidemia, unspecified; I50.9 Heart failure, unspecified; E66.9 Obesity, unspecified; Z87.891 Personal history of nicotine dependence; Z68.38 Body mass index [BMI] 38.0-38.9, adult; Z79.899 Other long term (current) drug therapy
CPT/HCPCS: 87071; 87075; 87077; 87147; 87186; 87205; G0463

== ENCOUNTER 2019-09-15 15:17 | Inpatient (IN) | payer MEDICARE ==
[~2019-09-15] VITALS: Ht 182.9 cm; Wt 125.9 kg
[2019-09-15 16:14] LABS: BASOPHILS ABSOLUTE AUTO 0.09 K/mm3 (0.00-0.23); BASOPHILS PERCENT AUTO 2 % (0-2); EOSINOPHILS ABSOLUTE AUTO 0.13 K/mm3 (0.00-0.68); EOSINOPHILS PERCENT AUTO 3 % (0-6); Hematocrit 31.7 % (37.0-53.0); Hemoglobin 10.3 g/dL (13.5-17.5); IMMATURE GRAN ABSOLUTE AUTO 0.04 K/mm3 (0.00-0.10); IMMATURE GRAN PERCENT AUTO 1 % (0-1); LYMPHOCYTES ABSOLUTE AUTO 1.18 K/mm3 (0.84-5.20); LYMPHOCYTES PERCENT AUTO 27 % (21-46); MONOCYTES ABSOLUTE AUTO 0.65 K/mm3 (0.16-1.47); MONOCYTES PERCENT AUTO 15 % (4-13); Mean Corpuscular HGB 34.8 pg (26.0-34.0); Mean Corpuscular HGB Conc 32.5 g/dL (31.5-36.5); Mean Corpuscular Volume 107 fL (80-100); Mean Platelet Volume 9.9 fL (9.1-12.4); NEUTROPHILS ABSOLUTE AUTO 2.37 K/mm3 (1.96-9.15); NEUTROPHILS PERCENT AUTO 53 % (41-73); Platelet Count 62 K/mm3 (150-400); RDW Coefficient Variation 15.9 % (11.7-14.2); RDW Standard Deviation 64.3 fL (35.1-46.3); Red Blood Cell Count 2.96 M/mm3 (4.30-5.90); White Blood Cell Count 4.46 K/mm3 (4.00-11.30)
[2019-09-15 16:36] LABS: Alanine Aminotransfer (ALT/SGP 28 U/L (12-78); Albumin, Blood 2.8 g/dL (3.4-5.0); Albumin/Globulin Ratio 0.6 (0.8-1.8); Alk Phos 112 U/L (50-136); Anion Gap 10 mmol/L (6-16); Aspartate Aminotrans (AST/SGOT 79 U/L (12-37); Blood Urea Nitrogen 10 mg/dL (8-24); Bun/Creatinine Ratio 10.2 (12.0-20.0); CO2, Blood 30 mmol/L (21-32); Calcium, Blood 8.1 mg/dL (8.5-10.1); Chloride, Blood 103 mmol/L (98-108); Creatinine, Blood 0.98 mg/dL (0.60-1.20); Ethanol (Alcohol), Blood, Med 203 mg/dL; Globulin, Blood 4.8 g/dL (2.2-4.0); Glomerular Filtration Rate >60 (60-); Glucose, Blood 93 mg/dL (70-99); Potassium, Blood 3.5 mmol/L (3.5-5.5); Sodium, Blood 143 mmol/L (136-145); Total Protein, Blood 7.6 g/dL (6.4-8.2); Troponin I 0.069 ng/mL (0.000-0.040)
[2019-09-15 18:37] LABS: International Normalized Ratio 1.02; Prothrombin Time Results 10.9 Sec (9.7-11.5)
--- NOTE | 2019-09-15 22:31 | NUR ---
PCU ADMIT PT BROUGHT TO U-04 BY RIKKI FROM ER @ APPROX 2215. PT A&O X4. PT ATTEMPT TO STAND TO AMBULATE TO PCU BED BUT REPORTED DIZZINESS & WAS THEN SLID OVER FROM [facility] TO U BED BY 4 STAFF MEMBERS INSTEAD. PT BP ELEVATED. MONITOR SHOWS AFIB, HR 100-110. SPO2 > 92% ON RA. HEPARIN GTT INFUSING PER ORDERS UPON ADMIT. L EYE NOTED TO HAVE SOME SWELLING AND REDNESS W/ CRUSTY DISCHARGE. L FOOT WOUND NOTED THAT PT DENIES KNOWING HOW LONG HE HAS HAD OR HOW IT ORIGINATED. PT DENIES TAKING MEDICATIONS FOR PAST 1.5-2 MONTHS BECAUSE "I DIDN'T LIKE THE WAY THEY MADE ME FEEL." PT ALSO REPORTS HAVING STOPPED TAKING BP MEDICATION BECAUSE "MY BLOOD PRESSURE WAS FINE." PT CIWA OF 8 UPON ADMIT W/ NOTED TREMORS, SWEATING, MILD ANXIETY, & PT REPORT OF HEADACHE. PT MEDICATED PER EMAR. WILL CONTINUE TO MONITOR & PROVIDE CARE.
[2019-09-16 01:21] LABS: Hematocrit 30.7 % (37.0-53.0); Mean Corpuscular HGB 35.1 pg (26.0-34.0); Mean Corpuscular HGB Conc 32.6 g/dL (31.5-36.5); Mean Corpuscular Volume 108 fL (80-100); Mean Platelet Volume 10.2 fL (9.1-12.4); Platelet Count 56 K/mm3 (150-400); RDW Coefficient Variation 16.3 % (11.7-14.2); RDW Standard Deviation 64.7 fL (35.1-46.3); Red Blood Cell Count 2.85 M/mm3 (4.30-5.90); White Blood Cell Count 3.92 K/mm3 (4.00-11.30)
[2019-09-16 01:41] LABS: Creatine Kinase MB 3.4 ng/mL (0.0-3.6); Creatine Kinase MB Index 1.2 (0.0-4.0); Troponin I 0.067 ng/mL (0.000-0.040)
[2019-09-16 01:50] LABS: Percent Saturation 48.8 % (20.0-50.0)
[2019-09-16 02:04] LABS: Alanine Aminotransfer (ALT/SGP 24 U/L (12-78); Albumin, Blood 2.5 g/dL (3.4-5.0); Albumin/Globulin Ratio 0.6 (0.8-1.8); Alk Phos 100 U/L (50-136); Anion Gap 9 mmol/L (6-16); Aspartate Aminotrans (AST/SGOT 70 U/L (12-37); Blood Urea Nitrogen 11 mg/dL (8-24); Bun/Creatinine Ratio 10.6 (12.0-20.0); CHOL/HDL RATIO 1.5; CO2, Blood 31 mmol/L (21-32); Chloride, Blood 104 mmol/L (98-108); Cholesterol 166 mg/dL (50-200); Creatinine, Blood 1.04 mg/dL (0.60-1.20); Globulin, Blood 4.5 g/dL (2.2-4.0); Glomerular Filtration Rate >60 (60-); Glucose, Blood 84 mg/dL (70-99); HDL Cholesterol 112 mg/dL (>39); LDL/HDL RATIO 0.4; Low Density Lipoprotein Chol 43 mg/dL (0-110); Magnesium, Blood 1.2 mg/dL (1.6-2.4); Phosphorus, Blood 3.1 mg/dL (2.5-4.9); Potassium, Blood 3.1 mmol/L (3.5-5.5); Sodium, Blood 144 mmol/L (136-145); Triglycerides 57 mg/dL (30-160); Very Low Density Lipoprot Chol 11 mg/dL (6-32)
--- NOTE | 2019-09-16 05:28 | NUR ---
HEPARIN GTT SHUT OFF HEPARIN GTT SHUT OFF @ APPROX 0430 D/T NEWLY SPREAD PETECHIAE IN BILAT ARMS & PT's L SIDE OF CHEST, ABD, & L UPPER THIGH. CALL TO MD KIM TO UPDATE ON PT FINDING. ORDER TO LEAVE HEPARIN GTT OFF FOR NOW AND CONTINUE TO MONITOR PT. PICTURES TAKEN & PLACED IN CHART. WILL CONTINUE TO MONITOR & PROVIDE CARE.
--- NOTE | 2019-09-16 05:39 | NUR ---
SHIFT SUMMARY PT A&O X4 W/ FORGETFULLNESS & DIFFICULTY RECALLING PAST EVENTS OR REASONINGS. MONITOR SHOWS AFIB, HR 100-120 W/ INCREASE BRIEFLY TO 150's W/ GETTING UP TO EDGE OF BED FOR URINAL USE. SPO2 > 92% ON RA. BP ELEVATED. HEPARIN GTT SHUT OFF @ APPROX 0430 D/T NEWLY SPREAD PETECHIAE, NOTIFIED, SEE PREVIOUS NOTE. PT MEDICATED W/ ATIVAN X2 FOR CIWA THIS SHIFT. PHOTOS TAKEN & PLACED IN CHART OF PT's L FOOT WOUND, L EYE SWELLING/REDNESS, & SPREAD PETECHIA. WILL CONTINUE TO MONITOR & PROVIDE CARE UNTIL REPORT OFF TO DAY SHIFT RN.
[2019-09-16 09:25] LABS: Mean Corpuscular HGB 34.4 pg (26.0-34.0); Mean Corpuscular HGB Conc 31.9 g/dL (31.5-36.5); Platelet Count 58 K/mm3 (150-400); RDW Coefficient Variation 16.1 % (11.7-14.2)
[2019-09-16 09:31] LABS: BASOPHILS ABSOLUTE AUTO 0.05 K/mm3 (0.00-0.23); BASOPHILS PERCENT AUTO 1 % (0-2); EOSINOPHILS ABSOLUTE AUTO 0.03 K/mm3 (0.00-0.68); EOSINOPHILS PERCENT AUTO 1 % (0-6); Hematocrit 34.2 % (37.0-53.0); Hemoglobin 10.9 g/dL (13.5-17.5); LYMPHOCYTES ABSOLUTE AUTO 0.86 K/mm3 (0.84-5.20); LYMPHOCYTES PERCENT AUTO 17 % (21-46); MONOCYTES ABSOLUTE AUTO 0.43 K/mm3 (0.16-1.47); MONOCYTES PERCENT AUTO 8 % (4-13); Mean Corpuscular Volume 108 fL (80-100); Mean Platelet Volume 10.6 fL (9.1-12.4); NEUTROPHILS ABSOLUTE AUTO 3.74 K/mm3 (1.96-9.15); NEUTROPHILS PERCENT AUTO 73 % (41-73); RDW Standard Deviation 64.5 fL (35.1-46.3); Red Blood Cell Count 3.17 M/mm3 (4.30-5.90); White Blood Cell Count 5.15 K/mm3 (4.00-11.30)
[2019-09-16 09:42] LABS: Creatine Kinase MB 2.7 ng/mL (0.0-3.6); Creatine Kinase MB Index 1.1 (0.0-4.0); Troponin I 0.066 ng/mL (0.000-0.040)
[2019-09-16 09:46] LABS: Phosphorus, Blood 3.1 mg/dL (2.5-4.9)
[2019-09-16 10:21] LABS: BAND PERCENT MAN 2 % (0-8); BASOPHILS ABSOLUTE MAN 0.05 K/mm3 (0.00-0.23); BASOPHILS PERCENT MAN 1 % (0-2); EOSINOPHILS ABSOLUTE MAN 0.05 K/mm3 (0.00-0.68); EOSINOPHILS PERCENT MAN 1 % (0-6); LYMPHOCYTES ABSOLUTE MAN 0.77 K/mm3 (0.84-5.20); LYMPHOCYTES PERCENT MAN 15 % (21-46); MONOCYTES PERCENT MAN 4 % (4-13); NEUTROPHILS ABSOLUTE MAN 4.06 K/mm3 (1.96-9.15); SEG NEUTROPHILS PERCENT MAN 77 % (41-73); TOTAL CELLS COUNTED 100
--- NOTE | 2019-09-16 19:24 | NUR ---
SHIFT SUMMARY PT ALERT AND ORIENTED, BUT FORGETFUL AND CONFUSED AT TIMES. BP STABLE. HR AFIB WITH RATE INCREASING 130-140'S THIS AFTERNOON. PT MEDICATED PER CIWA. PT REPOSITIONED Q2H. PETECHIA REMAINS ON ALL EXTREMITIES AND CHEST. PT INCONTINENT OF BOWEL AND BLADDER THIS SHIFT. ATTENDS CHANGED NEEDED. REPORT GIVEN TO LAM WEBER.
[2019-09-17 04:21] LABS: BASOPHILS ABSOLUTE AUTO 0.05 K/mm3 (0.00-0.23); BASOPHILS PERCENT AUTO 1 % (0-2); EOSINOPHILS ABSOLUTE AUTO 0.11 K/mm3 (0.00-0.68); EOSINOPHILS PERCENT AUTO 2 % (0-6); Hematocrit 32.6 % (37.0-53.0); Hemoglobin 10.3 g/dL (13.5-17.5); IMMATURE GRAN ABSOLUTE AUTO 0.06 K/mm3 (0.00-0.10); IMMATURE GRAN PERCENT AUTO 1 % (0-1); LYMPHOCYTES ABSOLUTE AUTO 1.45 K/mm3 (0.84-5.20); LYMPHOCYTES PERCENT AUTO 19 % (21-46); MONOCYTES ABSOLUTE AUTO 0.64 K/mm3 (0.16-1.47); MONOCYTES PERCENT AUTO 9 % (4-13); Mean Corpuscular HGB 34.9 pg (26.0-34.0); Mean Corpuscular HGB Conc 31.6 g/dL (31.5-36.5); Mean Corpuscular Volume 111 fL (80-100); Mean Platelet Volume 11.3 fL (9.1-12.4); NEUTROPHILS ABSOLUTE AUTO 5.22 K/mm3 (1.96-9.15); NEUTROPHILS PERCENT AUTO 69 % (41-73); Platelet Count 61 K/mm3 (150-400); RDW Coefficient Variation 16.3 % (11.7-14.2); RDW Standard Deviation 67.7 fL (35.1-46.3); Red Blood Cell Count 2.95 M/mm3 (4.30-5.90); White Blood Cell Count 7.53 K/mm3 (4.00-11.30)
[2019-09-17 04:33] LABS: International Normalized Ratio 1.06; Prothrombin Time Results 11.3 Sec (9.7-11.5)
[2019-09-17 04:58] LABS: Albumin, Blood 2.3 g/dL (3.4-5.0); Albumin/Globulin Ratio 0.6 (0.8-1.8); Bilirubin, Total 1.4 mg/dL (0.1-1.0); Bun/Creatinine Ratio 9.7 (12.0-20.0); Creatinine, Blood 2.47 mg/dL (0.60-1.20); Potassium, Blood 3.3 mmol/L (3.5-5.5); Total Protein, Blood 6.3 g/dL (6.4-8.2); Troponin I 0.146 ng/mL (0.000-0.040)
--- NOTE | 2019-09-17 05:47 | NUR ---
SHIFT SUMMARY PT SLEEPING IN ROOM COMFORTABLY AT THIS TIME. NO ACUTE CHANGES IN STATUS T/O NIGHT. PT SLEPT WELL IN PERIODS, WOKE SEVERAL TIMES ATTEMPTING TO GET OUT OF BED. PT IS EASILY REDIRECTABLE TO LAY BACK. PT REQUIRED FREQUENT REMINDERS OF PLACE AND EVENT. CIWA PROTOCOL IN PLACE, HIGHEST WAS 8 DURING NIGHT. PT MEDICATED PER EMAR. TOLERATED LIBRIUM WELL. RESP EVEN UNLABORED ON RA W/ SATS >92%. DENIED CP OR SOB T/O NIGHT. CALL LIGHT IN REACH. SIDE RAILS UP AND BED ALARM ON FOR SAFETY.
--- NOTE | 2019-09-17 09:35 | NUR ---
PT IS VOMITTING, PT MEDS WILL BE HELD UNTIL NAUSEA AND VOITTING RESOLVED
--- NOTE | 2019-09-17 09:37 | NUR ---
ATIVAN 2MG GIVEN FOR CIWA, 5MG ZOFRAN GIVEN FOR N/V. PT HAS IMMEDIATE IMPROVEMENT OF N/V WITH MEDICATION ADMINISTRATION. PT REMAINS CONFUSED DOES NOT ANSWER QUESTIONS APPROPRIATELY. SOILS ATTENDS AND ATTEMPTS TO REACH STOOL IN ATTENDS DESPITE STAFF REDORECTION PT STS "WANTED TO SEE WHAT I HAD DONE"
[2019-09-17 09:59] LABS: Magnesium, Blood 1.6 mg/dL (1.6-2.4)
--- NOTE | 2019-09-17 18:33 | NUR ---
SHIFT NOTE PT HAS BEEN RESTING WELL IN BED. PT REMAINS CONFUSED, DOES ANSWER SOME QUESTIONS APPORPRIATELY, BUT IS VERY FORGETFULL. SLIGHT IMPROVEMENT OF RASH TO ARMS AND LEGS T/O THE DAY, COLOR HAS LIGHTENING SLIGHLY. PT'S CIWA HAS VARIED BETWEEN 3-13 TODAY, PT WAS MEDCIATED WITH LIBRIUM THIS EVEN AND ATIVAN THIS AM WHICH HAS RESOLVED WITHDRAWL SYMTPOMS WELL. PT HAS BEEN ABLE TO BE MORE INVOLVED IN ROLLING AND TURNING TODAY. VSS.
[2019-09-18 04:31] LABS: Hematocrit 29.6 % (37.0-53.0); Hemoglobin 9.1 g/dL (13.5-17.5); Mean Corpuscular HGB 34.7 pg (26.0-34.0); Mean Corpuscular HGB Conc 30.7 g/dL (31.5-36.5); Mean Corpuscular Volume 113 fL (80-100); Mean Platelet Volume 10.7 fL (9.1-12.4); Platelet Count 59 K/mm3 (150-400); RDW Coefficient Variation 16.3 % (11.7-14.2); RDW Standard Deviation 68.1 fL (35.1-46.3); Red Blood Cell Count 2.62 M/mm3 (4.30-5.90); White Blood Cell Count 8.44 K/mm3 (4.00-11.30)
[2019-09-18 04:54] LABS: Albumin, Blood 2.4 g/dL (3.4-5.0); Albumin/Globulin Ratio 0.6 (0.8-1.8); Bun/Creatinine Ratio 12.4 (12.0-20.0); Calcium, Blood 8.2 mg/dL (8.5-10.1); Creatinine, Blood 2.5 mg/dL (0.60-1.20); Globulin, Blood 3.9 g/dL (2.2-4.0); Potassium, Blood 3.3 mmol/L (3.5-5.5); Total Protein, Blood 6.3 g/dL (6.4-8.2)
--- NOTE | 2019-09-18 05:25 | NUR ---
SHIFT SUMMARY PT SLEEPING IN ROOM COMFORTABLY AT THIS TIME. NO ACUTE CHANGES IN STATUS T/O NIGHT. PT SLEPT WELL. DID NOT TRY AND GET OUT OF BED DURING NIGHT. CIWA SCORES BETWEEN 3-5. PT APPEARS TO BE CLEARING AND BECOMING MORE ORIENTED DURING NIGHT. PT ABLE TO FOLLOW DIRECTIONS WELL AND ASKING QUESTIONS ABOUT CARE. PT ONLY MEDICATED ONCE DURING NIGHT FOR WITHDRAWAL SYMPTOMS. RESP EVEN UNLABORED ON RA W/ SATS >92%. PT DENIED ANY CP OR SOB. PETICHEA RASH IMPROVING, SKIN TONE BE BE SEEN UNDERNEATH RASH AND REDNESS HAS GREATLY REDUCED. CALL LIGHT IN REACH.
--- NOTE | 2019-09-18 19:48 | NUR ---
SHIFT SUMMARY NO ACUTE CHANGES NOTED, PT HAS BEEN ALERT, ORIENTED X3 & COOPERATIVE WITH CARE, PT HAS TOLERATED PO INTAKE, VOIDING WNL. PT WAS ABLE TO WORK WITH PHYSICAL THERAPY, CIWA OF 7 NOTED, LIBRIUM GIVEN X1, PT EDUCATION PROVIDED REGARDING WITHDRAWAL SYMPTOMS, PT IS ASKING FOR FURTHER HELP UPON D/C. SOCIAL SERVICE WILL BE CONTACTED. CALL LIGHT IN REACH, BED ALARM FOR SAFETY.
--- NOTE | 2019-09-19 04:09 | NUR ---
68 year old MAle continues on tele monitoring & continues in AFIB rate in the 80's. continues in contact isolation for hx of MRSA in wound. PT on alcohol withdrawl protocol 25 mg librium at HS for score of 8. PT weak dehabilitated, working with PT now that his CIWA scores are lower. To dangle & up to bedside chair as tolerated. PT says he wants to get treatment for alcoholism he has limited resources to pay for treatment. PT has petechial rash from heparin gtt which was stopped. PT has wound care ordered for lt foot ulcer, lt foot is mishapen & he has baseline nonambulatory status, uses wheelchair at home. Appetite improving took ensure & snack, fed self dinner.
[2019-09-19 04:49] LABS: BASOPHILS ABSOLUTE AUTO 0.05 K/mm3 (0.00-0.23); BASOPHILS PERCENT AUTO 1 % (0-2); EOSINOPHILS ABSOLUTE AUTO 0.39 K/mm3 (0.00-0.68); EOSINOPHILS PERCENT AUTO 5 % (0-6); Hemoglobin 8.7 g/dL (13.5-17.5); IMMATURE GRAN ABSOLUTE AUTO 0.07 K/mm3 (0.00-0.10); IMMATURE GRAN PERCENT AUTO 1 % (0-1); LYMPHOCYTES ABSOLUTE AUTO 1.51 K/mm3 (0.84-5.20); LYMPHOCYTES PERCENT AUTO 18 % (21-46); MONOCYTES PERCENT AUTO 15 % (4-13); Mean Corpuscular HGB 35.2 pg (26.0-34.0); Mean Corpuscular HGB Conc 31.1 g/dL (31.5-36.5); Mean Corpuscular Volume 113 fL (80-100); Mean Platelet Volume 11.3 fL (9.1-12.4); NEUTROPHILS ABSOLUTE AUTO 5.15 K/mm3 (1.96-9.15); NEUTROPHILS PERCENT AUTO 61 % (41-73); Platelet Count 70 K/mm3 (150-400); RDW Coefficient Variation 15.9 % (11.7-14.2); RDW Standard Deviation 66.2 fL (35.1-46.3); Red Blood Cell Count 2.47 M/mm3 (4.30-5.90); White Blood Cell Count 8.47 K/mm3 (4.00-11.30)
[2019-09-19 04:50] LABS: Albumin, Blood 2.4 g/dL (3.4-5.0); Albumin/Globulin Ratio 0.6 (0.8-1.8); Bun/Creatinine Ratio 15.3 (12.0-20.0); Calcium, Blood 8.2 mg/dL (8.5-10.1); Creatinine, Blood 2.15 mg/dL (0.60-1.20); Potassium, Blood 3.7 mmol/L (3.5-5.5); Total Protein, Blood 6.4 g/dL (6.4-8.2)
--- NOTE | 2019-09-19 06:51 | NUR ---
MAle PT who will be 69 tomorrow continues in afib rate in 70s or 80s. Hypertensive on metoperol. cccccccccccccccccccccccccccccccccccccccccccccccccccccccccccccccccccccccccccccc cccccccccccccccccccccccccccccccccccccccccccccccccccccccccccccccccccccccccccccc cccccccccccccccccccccccccccccccccccccccccccccccccccccccccccccccccccccccccccccc cccccccccccccccccccccccccccccccccccccccccccccccccccccccccccccccccccccccccccccc cccccccccccccccccccccccccccccccccccccccccccccccccccccccccccccccccccccccccccccc cccccccccccccccccccccccccccccccccccccccccccccccccccccccccccccccccccccccccccccc cccccccccccccccccccccccccccccccccccccccccccccccccccccccccccccccccccccccccccccc cccccccccccccccccccccccccccccccccccccccccccccccccccccccccccccccccccccccccccccc cccccccccccccccccccccccccccccccccccccccccccccccccccccccccccccccccccccccccccccc cccccccccccccccccccccccccccccccccccccccccccccccccccccccccccccccccccccccccccccc cccccccccccccccccccccccccccccccccccccccccccccccccccccccccccccccccccccccccccccc cccccccccccccccccccccccccccccccccccccccccccccccccccccccccccccccccccccccccccccc cccccccccccccccccccccccccccccccccccccccccccccccccccccccccccccccccccccccccccccc cccccccccccccccccccccccccccccccccccccccccccccccccccccccccccccccccccccccccccccc cccccccccccccccccccccccccccccccccccccccccccccccccccccccccccccccccccccccccccccc cccccccccccccccccccccccccccccccccccccccccccccccccccccccccccccccccccccccccccccc cccccccccccccccccccccccccccccccccccccccccccccccccccccccccccccccccccccccccccccc ccccccccccccccccccccccccccccccccccccccccccccccccccccccccccccccccccccc
--- NOTE | 2019-09-19 15:51 | NUR ---
Spiritual care visit conducted. Patient is lying in bed and alert. Patient immediately asks me for a shot of Vodka. Once we got through that patient tells me about the of his father when patient was 5yrs old, of his mother when patient was 16 and the of his brother when patient was 17. Patient explains that this is the beginning of why he has trouble believing ing God. Patient tells me about the regrets he maintains and about what his life is reduced to these days. I listen empathically, normalize his experience and provide grief support, spiritual guidance and prayer. Patient responds well and shows signs of catharsis but then goes back to his repated plea for vodka. I will continue to remain available to patient and family.
--- NOTE | 2019-09-19 17:36 | NUR ---
SHIFT SUMMARY. 1619 PT TRANSFERED FROM PCU VIA BED. CIWA 2. URINE TEA COLORED. PT HAS NOT ATTEMPTED TO GET OOB UNASSISTED. BED ALARM ACTIVATED FOR SAFETY. PT INTERMITENTLY CONFUSED, REORIENTS EASILY. NO NEW CHANGES OR CONCERNS.
--- NOTE | 2019-09-19 19:00 | NUR ---
ASSUMED CARE RECEIVED REPORT FROM TIA GOMEZ. ASSUMED CARE OF PT. ASLEEP AT THIS TIME, RESPS EVEN AND UNLABORED. CALL LIGHT, POSSESSIONS IN REACH, BED IN LOWEST POSITION. WILL CONTINUE TO MONITOR.
--- NOTE | 2019-09-20 04:14 | NUR ---
SHIFT SUMMARY PT HAS SLEPT OFF AND ON T/O NIGHT. AWAKES OCCASIONALLY, WITH PERIODS OF CONFUSION, STATED THAT HE NEEDED HIS "WALKING STICK." RE-ORIENTED TO TIME AND RE-DIRECTED BACK TO BED. PT DIRECTABLE. ASSISTED BACK TO BED. NO FURTHER ATTEMPTS TO EXIT BED AT THIS TIME. VSS. NO CHANGES IN RASH NOTED. DENIES NEEDS AT THIS TIME, CALL LIGHT, POSSESSIONS IN REACH, BED IN LOW POSITION WITH ALARM ON. WILL CONTINUE TO MONITOR UNTIL DAY RN ASSUMES CARE.
[2019-09-20 05:24] LABS: BASOPHILS ABSOLUTE AUTO 0.06 K/mm3 (0.00-0.23); BASOPHILS PERCENT AUTO 1 % (0-2); EOSINOPHILS ABSOLUTE AUTO 0.33 K/mm3 (0.00-0.68); EOSINOPHILS PERCENT AUTO 4 % (0-6); Hematocrit 25.4 % (37.0-53.0); IMMATURE GRAN ABSOLUTE AUTO 0.07 K/mm3 (0.00-0.10); IMMATURE GRAN PERCENT AUTO 1 % (0-1); LYMPHOCYTES ABSOLUTE AUTO 1.86 K/mm3 (0.84-5.20); LYMPHOCYTES PERCENT AUTO 23 % (21-46); MONOCYTES ABSOLUTE AUTO 1.46 K/mm3 (0.16-1.47); MONOCYTES PERCENT AUTO 18 % (4-13); Mean Corpuscular HGB 35.2 pg (26.0-34.0); Mean Corpuscular HGB Conc 31.5 g/dL (31.5-36.5); Mean Corpuscular Volume 112 fL (80-100); Mean Platelet Volume 10.8 fL (9.1-12.4); NEUTROPHILS PERCENT AUTO 53 % (41-73); Platelet Count 87 K/mm3 (150-400); RDW Coefficient Variation 15.8 % (11.7-14.2); RDW Standard Deviation 65.1 fL (35.1-46.3); Red Blood Cell Count 2.27 M/mm3 (4.30-5.90); White Blood Cell Count 8.08 K/mm3 (4.00-11.30)
[2019-09-20 05:33] LABS: Calcium, Blood 8.1 mg/dL (8.5-10.1); Creatinine, Blood 2.2 mg/dL (0.60-1.20); Potassium, Blood 4.1 mmol/L (3.5-5.5)
[2019-09-20 08:56] LABS: IMMATURE RETIC FRACTION 31.2 % (2.3-16.0); RETIC HGB EQUIVALENT 35.4 pg (28.20-36.60); RETICULOCYTE COUNT PERCENT 2.91 % (0.50-2.50)
[2019-09-20 09:06] LABS: Percent Saturation 9.9 % (20.0-50.0)
[2019-09-20] MEDS ORDERED: LOSA50 PO (12:14)
[2019-09-20 12:26] LABS: Hematocrit 27.2 % (37.0-53.0); Hemoglobin 8.7 g/dL (13.5-17.5)
[2019-09-20 12:50] LABS: Stool Occult Bld Immuno 1 Positive (NEGATIVE)
--- NOTE | 2019-09-20 18:10 | NUR ---
SHIFT SUMMARY PT UP IN CHAIR FOR MEALS AND TOOK SHOWER THIS AM. PT HAS GOOD APPETITE. LEFT FOOT WOUND CULTURED AND NEW DRESSING PLACED PER ORDERS. PT HAS HAD NO COMPLAINTS. NO ACUTE CHANGES. WILL CONTINUE TO MONITOR AND REPORT TO ONCOMING RN.
--- NOTE | 2019-09-21 04:31 | NUR ---
MULTI OPERATION FORMING MACHINE SETTER SUMMARY Very somnolent tonight. Left foot wound cleansed and dressed with calcium alginate abd mepilex per monologist order. Patient states no sensation around wound. He is unsure of how long his sensation has been diminishing. A&O X2-3. strong two person assist to chair or to pull up in bed Motivated.
[2019-09-21 05:10] LABS: BASOPHILS ABSOLUTE AUTO 0.05 K/mm3 (0.00-0.23); BASOPHILS PERCENT AUTO 1 % (0-2); EOSINOPHILS ABSOLUTE AUTO 0.24 K/mm3 (0.00-0.68); EOSINOPHILS PERCENT AUTO 3 % (0-6); Hematocrit 28.6 % (37.0-53.0); Hemoglobin 8.9 g/dL (13.5-17.5); IMMATURE GRAN ABSOLUTE AUTO 0.08 K/mm3 (0.00-0.10); IMMATURE GRAN PERCENT AUTO 1 % (0-1); LYMPHOCYTES ABSOLUTE AUTO 1.63 K/mm3 (0.84-5.20); LYMPHOCYTES PERCENT AUTO 23 % (21-46); MONOCYTES ABSOLUTE AUTO 1.11 K/mm3 (0.16-1.47); MONOCYTES PERCENT AUTO 16 % (4-13); Mean Corpuscular HGB 34.5 pg (26.0-34.0); Mean Corpuscular HGB Conc 31.1 g/dL (31.5-36.5); Mean Corpuscular Volume 111 fL (80-100); Mean Platelet Volume 10.1 fL (9.1-12.4); NEUTROPHILS ABSOLUTE AUTO 3.87 K/mm3 (1.96-9.15); NEUTROPHILS PERCENT AUTO 56 % (41-73); Platelet Count 100 K/mm3 (150-400); RDW Coefficient Variation 15.2 % (11.7-14.2); RDW Standard Deviation 62.6 fL (35.1-46.3); Red Blood Cell Count 2.58 M/mm3 (4.30-5.90); White Blood Cell Count 6.98 K/mm3 (4.00-11.30)
[2019-09-21 05:32] LABS: Albumin, Blood 2.3 g/dL (3.4-5.0); Albumin/Globulin Ratio 0.5 (0.8-1.8); Bilirubin, Total 0.8 mg/dL (0.1-1.0); Bun/Creatinine Ratio 14.9 (12.0-20.0); Calcium, Blood 8.6 mg/dL (8.5-10.1); Creatinine, Blood 2.15 mg/dL (0.60-1.20); Globulin, Blood 4.4 g/dL (2.2-4.0); Potassium, Blood 4.1 mmol/L (3.5-5.5); Total Protein, Blood 6.7 g/dL (6.4-8.2)
--- NOTE | 2019-09-21 13:05 | NUR ---
IS AT THE BEDSIDE AT THIS TIME. NO COMPLAINTS
--- NOTE | 2019-09-21 15:28 | NUR ---
INITIAL [facility] CARE VISIT - and case conferenced with , RN, Comm Care Coord Initial visit made to pt and after review of EMR and case conference with his RN and [facility] Comm residential care facility manager. Pt appears older than his stated age. 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 Pt was agreeable and receptive to s/s assessment and conversation and also conversation re: his goals of care, Code status of choice and options for ongoing care. Pt states he has chronic wrist, ankle and knee pain. 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 Pt has not been taking anything for pain at home but reports experiencing it frequently. Cautioned him to be careful even with OTC medications for pain due to his kidney and liver impairment. He has tylenol ordered here but has not reported pain to his nurse or received it. Spoke with Dr Ramirez about what would be safe and helpful for pain prn. Dr entered new orders for Tramadol prn. Nurse updated on new orders. I spoke to pt about his multiple comorbidities and his goals of care. He had been on hospice at one time because drs told him he "pickled his heart" per . Record of EF of 20% noted in old records. Pt has a POLST on file, signed by Dr and pt for DNR, comfort measures only and no feeding tubes. Pt and report that they had an updated one for full code and full tx. Pt confirms those are his wishes at this time. She will bring that POLST in so Susana of [facility] can copy for scanning in to [facility] and [facility]'s electronic records and purge the old inaccurate one. Pt's current orders for FULL CODE are in allignment with his wishes. We talked at length about his heart failure, previous heart function. I educated on opportunity for improvement with no alcohol, cardiac diet, more activity, weight loss, medications as ordered and close medical management. I also gave them written and verbal information on cardiac rehab to discuss with their PCP at [facility] once he is stable on cardiac medications for the required number of weeks. Pt meets medicare criteria for cardiac rehab if that stability can be attained after d/c. and pt were very interested in cardiac rehab and the education available thru [facility]. I updated RN and on my visit as well as Susana from [facility]. Primary Pal Care f/u is for getting most updated POLST scanned into pt's EMR once received from and Susana of [facility].
--- NOTE | 2019-09-21 18:29 | NUR ---
PATIENT IS ALERT. HE IS ORIENTED X3 WITH SOME CONFUSION. DR. AUSTIN CAME TO SEE THE PATIENT TONIGHT AND DECIDED TO DEBRIDE THE PATIENT FOOT WOUND TOMORROW AFTERNOON. IS AT THE BEDSIDE. TELE IS IN PLACE AFIB AT 75 BPM. PATIENT USES THE URINAL. HE IS A 1PA UP TO THE CHAIR. COMPLAINED OF PAIN IN HIS ANKLES AND WRISTS, TREATED PER EMAR. WILL CONTINUE TO MONITOR
--- NOTE | 2019-09-22 07:00 | NUR ---
ASSUMED CARE: PT RESTING QUIETLY IN BED, TELE IN PLACE. NO ACUTE NEEDS OR CONCERNS AT THIS TIME.
--- NOTE | 2019-09-22 07:21 | NUR ---
SHIFT SUMMARY ALERT, ABLE TO MAKE NEEDS KNOWN. CONFUSED, FORGETFUL AND IMPULSIVE AT TIMES. COOPERATIVE WITH CARE. NO C/O PAIN/DISCOMFORT. APPEARED TO REST MUCH OF THE SHIFT. NO ACUTE CHANGES NOTED OVERNIGHT. NEW 20G IV TO LFA. BED REMAINED IN LOWEST POSITION; ALARM ON. CALL LIGHT AND BELONGINGS WITHIN REACH. CONTINUED TO MONITOR OVERNIGHT. REPORT GIVEN TO ONCOMING RN.
--- NOTE | 2019-09-22 08:45 | NUR ---
DR GRAYSON IN TO SEE PT. INSTRUCTS FOR PT TO BE PROVIDED WITH RESOURCES FOR REHAB HAS OUTPT. LEFT MESSAGE WITH DC PHYSICALLY IMPAIRED TEACHER. PLANS FOR DC TOMORROW.
[2019-09-22 08:55] LABS: Creatinine, Blood 2.14 mg/dL (0.60-1.20); Vancomycin, Trough 19.9 ug/mL (5.0-10.0)
--- NOTE | 2019-09-22 10:17 | NUR ---
pt recieving bedbath by olericulture teacher. will apply santyl when pt available
--- NOTE | 2019-09-22 18:19 | NUR ---
SHIFT SUMMARY: DR AUSTIN CAME TO SEE PT AND APOLOGIZED FOR NOT BEING ABLE TO DO I AND D TODAY. PLAN IS FOR TOMORROW WITH POSSIBLE DC AFTER THAT. WORKED WITH PT/OT TODAY. NO ACUTE NEEDS OR CONCERNS.
--- NOTE | 2019-09-23 04:17 | NUR ---
SHIFT SUMMARY ALERT, ABLE TO MAKE NEEDS KNOWN. CONFUSED. IMPULSIVE AND FORGETFUL AT TIMES. COOPERATIVE WITH CARE. NO C/O PAIN/DISCOMFORT. DRSG CHANGED TO WOUND PER ORDERS. APPEARED TO REST MUCH OF SHIFT. UP TO BEDSIDE WITH URINAL. NO ACUTE CHANGES NOTED OVERNIGHT. TELE CONTINUES TO RUN AFIB IN 70's. BED REMAINED IN LOWEST POSITION; ALARM ON. CALL LIGHT WITHIN REACH; DOES NOT UTILIZED. CONTINUED TO MONITOR OVERNIGHT. REPORT TO ONCOMING RN.
[2019-09-23 05:51] LABS: BASOPHILS ABSOLUTE AUTO 0.08 K/mm3 (0.00-0.23); BASOPHILS PERCENT AUTO 1 % (0-2); EOSINOPHILS ABSOLUTE AUTO 0.28 K/mm3 (0.00-0.68); EOSINOPHILS PERCENT AUTO 4 % (0-6); Hematocrit 25.2 % (37.0-53.0); Hemoglobin 7.9 g/dL (13.5-17.5); IMMATURE GRAN ABSOLUTE AUTO 0.08 K/mm3 (0.00-0.10); IMMATURE GRAN PERCENT AUTO 1 % (0-1); LYMPHOCYTES ABSOLUTE AUTO 1.24 K/mm3 (0.84-5.20); LYMPHOCYTES PERCENT AUTO 17 % (21-46); MONOCYTES PERCENT AUTO 24 % (4-13); Mean Corpuscular HGB 34.6 pg (26.0-34.0); Mean Corpuscular HGB Conc 31.3 g/dL (31.5-36.5); Mean Corpuscular Volume 111 fL (80-100); Mean Platelet Volume 10.6 fL (9.1-12.4); NEUTROPHILS ABSOLUTE AUTO 3.82 K/mm3 (1.96-9.15); NEUTROPHILS PERCENT AUTO 53 % (41-73); Platelet Count 153 K/mm3 (150-400); RDW Coefficient Variation 15.1 % (11.7-14.2); RDW Standard Deviation 61.1 fL (35.1-46.3); Red Blood Cell Count 2.28 M/mm3 (4.30-5.90)
[2019-09-23 06:13] LABS: Bun/Creatinine Ratio 13.5 (12.0-20.0); Creatinine, Blood 2.08 mg/dL (0.60-1.20)
--- NOTE | 2019-09-23 10:24 | NUR ---
INTO [facility] ASSUMED CARE OF PATIENT FROM MARY SOLIS RN. [facility] TO [facility] STARTED
--- NOTE | 2019-09-23 11:21 | NUR ---
09/23/19 1121 Kailee Zhang PATIENT GIVEN LOCAL SEDATION ONLY PER DR. AUSTIN. PERLA LIU RN AT HEAD OF BED MONITORING PATIENT VITAL SIGNS. PATIENT TOLERATING PROCEDURE WELL.
[2019-09-23] MEDS ORDERED: AMLO5 PO (17:32)
[2019-09-23] MEDS ORDERED: FOLI1 PO (17:33)
[2019-09-23] MEDS ORDERED: METO50ER PO (17:33)
[2019-09-23] MEDS ORDERED: METO100ER PO (17:33)
[2019-09-23] MEDS ORDERED: PANT40 PO (17:34)
[2019-09-23] MEDS ORDERED: B-1100 M1 PO (17:34)
[2019-09-23] MEDS ORDERED: CLIN300 PO (17:34)
[2019-09-23] MEDS ORDERED: ERYT.5TO LEFTEYE (17:35)
--- NOTE | 2019-09-23 19:27 | NUR ---
Shift Summary A/Ox3 with occassioal forgetfulness. Patient forgets to call for assistance, likes to dangle at side of bed to use urinal. This often sets the alarm off. Will continue to remind patient about use of call light. Denies pain. Debridement of L foot wound completed along with wound care. No local or general anesthesia required per Dr. Augustine. Patient tolerated procedure well. Possible discharge tomorrow to [facility] pending authorization from health insurance. Tele: Afib 80's. Dr. Quinn consulted today, will schedule outpatient scopes. Up in chair with 1-2 moderate assist c FWW, requires frequent reminders to use FWW appropriately. Otherwise, no acute events this shift.
[2019-09-24 05:12] LABS: BASOPHILS ABSOLUTE AUTO 0.07 K/mm3 (0.00-0.23); BASOPHILS PERCENT AUTO 1 % (0-2); EOSINOPHILS ABSOLUTE AUTO 0.21 K/mm3 (0.00-0.68); EOSINOPHILS PERCENT AUTO 3 % (0-6); Hematocrit 25.7 % (37.0-53.0); Hemoglobin 8.2 g/dL (13.5-17.5); IMMATURE GRAN ABSOLUTE AUTO 0.08 K/mm3 (0.00-0.10); IMMATURE GRAN PERCENT AUTO 1 % (0-1); LYMPHOCYTES PERCENT AUTO 23 % (21-46); MONOCYTES ABSOLUTE AUTO 1.35 K/mm3 (0.16-1.47); MONOCYTES PERCENT AUTO 21 % (4-13); Mean Corpuscular HGB 34.6 pg (26.0-34.0); Mean Corpuscular HGB Conc 31.9 g/dL (31.5-36.5); Mean Corpuscular Volume 108 fL (80-100); Mean Platelet Volume 10.6 fL (9.1-12.4); NEUTROPHILS ABSOLUTE AUTO 3.23 K/mm3 (1.96-9.15); NEUTROPHILS PERCENT AUTO 50 % (41-73); Platelet Count 181 K/mm3 (150-400); RDW Standard Deviation 60.1 fL (35.1-46.3); Red Blood Cell Count 2.37 M/mm3 (4.30-5.90); White Blood Cell Count 6.44 K/mm3 (4.00-11.30)
[2019-09-24 05:57] LABS: Bun/Creatinine Ratio 12.9 (12.0-20.0); Calcium, Blood 8.3 mg/dL (8.5-10.1); Creatinine, Blood 2.02 mg/dL (0.60-1.20); Potassium, Blood 3.9 mmol/L (3.5-5.5)
--- NOTE | 2019-09-24 06:19 | NUR ---
SHIFT SUMMARY- PT. HAD NO ACUTE EVENTS OVERNIGHT. PT. ALERT W/INTERMITTENT CONFUSION. ATTEMPTED TO GET OOB SEVERAL TIMES T/O THE SHIFT TO USE THE URINAL. PT. VERY WEAK, ASSISTED WITH URINAL AT THE BEDSIDE AND BACK TO BED. NO COMPLAINTS DURING THE NIGHT. SLEPT ON/OFF, NO APPARENT DISTRESS NOTED. PLAN FOR POSS D/C TODAY. CALL LIGHT WITHIN REACH, SIDE RAILS UPX2, AND BED ALARM ON FOR SAFETY. WILL CONT TO MONITOR.
--- NOTE | 2019-09-24 12:35 | NUR ---
Discharge Summary Discharging to [facility]. Report given to receiving nurse Hector. Packet provided. IV removed, WNL. Patient denies pain. Did not seem too content with going to [facility]. Educated on the need for continued wound care and strenghtening exercises for which [facility] can provide. Also informed patient that Dr. Ramirez and CM has spoken to and she is agreeable as well. Wound care completed today. Updated med rec refaxed to [facility].
== END 2019-09-24 12:20 | DRG 264 ==
LOC: ER 15:17 → MEDS 20:35 → PCU 20:35 → MEDS 09-19 16:19
PROVIDERS: Family Medicine; Internal Medicine; Physician Assistant; Podiatrist; Student in an Organized Health Care Education/Training Program; ADMIT Internal Medicine
PROC: 0JBR0ZZ Excision of Left Foot Subcutaneous Tissue and Fascia, Open Approach (ICD-10-PCS; principal; 2019-09-23 10:30)
DX: I13.0 Hypertensive heart and chronic kidney disease with heart failure and stage 1 through stage 4 chronic kidney disease, or unspecified chronic kidney disease (principal); I50.23 Acute on chronic systolic (congestive) heart failure; F10.239 Alcohol dependence with withdrawal, unspecified; N17.9 Acute kidney failure, unspecified; K92.1 Melena; L97 Non-pressure chronic ulcer of lower limb, not elsewhere classified; Z20.828 Contact with and (suspected) exposure to other viral communicable diseases; I48.0 Paroxysmal atrial fibrillation; Z79.82 Long term (current) use of aspirin; I42.6 Alcoholic cardiomyopathy; E66.9 Obesity, unspecified; Z68.29 Body mass index [BMI] 29.0-29.9, adult; Z99.3 Dependence on wheelchair; E83.42 Hypomagnesemia; D69.6 Thrombocytopenia, unspecified; K70.9 Alcoholic liver disease, unspecified; K76.0 Fatty (change of) liver, not elsewhere classified; D53.9 Nutritional anemia, unspecified; G47.33 Obstructive sleep apnea (adult) (pediatric); H91.90 Unspecified hearing loss, unspecified ear; Z87.891 Personal history of nicotine dependence; G62.1 Alcoholic polyneuropathy; N18.9 Chronic kidney disease, unspecified; R79.89 Other specified abnormal findings of blood chemistry; Y90.7 Blood alcohol level of 200-239 mg/100 ml
CPT/HCPCS: 36415; 71045; 73620; 73718; 76700; 76857; 80048; 80053; 80061; 80202; 82274; 82550; 82553; 82565; 82607; 82728; 82746; 83540; 83550; 83735; 83880; 84100; 84484; 85007; 85014; 85018; 85025; 85027; 85045; 85610; 85730; 87070; 87077; 87147; 87186; 87205; 93005; 93010; 93922; 96365; 96366; 96375; 97110; 97112; 97162; 97530; 97530-CQ; 99285-25; A9270; A9270-GY; C8929; C9113; G0480; J1644; J1940; J2060; J2405; J3370; J3475; J7050; Q9957; U0002

== ENCOUNTER 2019-11-28 00:28 | Day surgery (SDC) | payer MEDICARE ==
[~2019-11-28 00:28] MED LIST changes: +AMLO5 PO; +B-1100 M1 PO; +CLIN300 PO; +DOXY100 PO; +ERYT.5TO LEFTEYE; +FOLI1 PO; +METO100ER PO; +METO50ER PO; +PANT40 PO; +Potassium Chlo20 ME1 PO; +SULTRIDS PO
== END 2019-11-28 23:06 | disposition home or self-care (01) ==
LOC: WOUND 00:28
DX: I96 Gangrene, not elsewhere classified (principal); L89.622 Pressure ulcer of left heel, stage 2; L89.612 Pressure ulcer of right heel, stage 2; S91.104A Unspecified open wound of right lesser toe(s) without damage to nail, initial encounter; N18.30 Chronic kidney disease, stage 3 unspecified; I50.9 Heart failure, unspecified; I13.0 Hypertensive heart and chronic kidney disease with heart failure and stage 1 through stage 4 chronic kidney disease, or unspecified chronic kidney disease; I49.9 Cardiac arrhythmia, unspecified; E78.5 Hyperlipidemia, unspecified; I48.0 Paroxysmal atrial fibrillation; G47.33 Obstructive sleep apnea (adult) (pediatric); F10.21 Alcohol dependence, in remission; G62.1 Alcoholic polyneuropathy; F03.90 Unspecified dementia, unspecified severity, without behavioral disturbance, psychotic disturbance, mood disturbance, and anxiety; F41.8 Other specified anxiety disorders; D69.6 Thrombocytopenia, unspecified; E66.9 Obesity, unspecified; Z68.35 Body mass index [BMI] 35.0-35.9, adult; Z88.1 Allergy status to other antibiotic agents; Z88.8 Allergy status to other drugs, medicaments and biological substances; Z79.899 Other long term (current) drug therapy; Z96.60 Presence of unspecified orthopedic joint implant; Z87.891 Personal history of nicotine dependence; X58.XXXA Exposure to other specified factors, initial encounter
CPT/HCPCS: G0463

== ENCOUNTER 2019-12-05 00:32 | Day surgery (SDC) | payer MEDICARE | END 2019-12-05 22:48 | disposition home or self-care (01) | LOC: WOUND 00:32 | DX: L97.529 Non-pressure chronic ulcer of other part of left foot with unspecified severity (principal); I73.9 Peripheral vascular disease, unspecified; I87.2 Venous insufficiency (chronic) (peripheral); I13.0 Hypertensive heart and chronic kidney disease with heart failure and stage 1 through stage 4 chronic kidney disease, or unspecified chronic kidney disease; N18.30 Chronic kidney disease, stage 3 unspecified; I50.9 Heart failure, unspecified; E66.9 Obesity, unspecified; Z79.899 Other long term (current) drug therapy; Z88.1 Allergy status to other antibiotic agents; Z88.8 Allergy status to other drugs, medicaments and biological substances; Z68.35 Body mass index [BMI] 35.0-35.9, adult ==

== ENCOUNTER 2019-12-12 00:43 | Day surgery (SDC) | payer MEDICARE | END 2019-12-12 22:42 | disposition home or self-care (01) | LOC: WOUND 00:43 | DX: I96 Gangrene, not elsewhere classified (principal); L89.622 Pressure ulcer of left heel, stage 2; S91.104A Unspecified open wound of right lesser toe(s) without damage to nail, initial encounter; I87.2 Venous insufficiency (chronic) (peripheral); I48.0 Paroxysmal atrial fibrillation; I13.0 Hypertensive heart and chronic kidney disease with heart failure and stage 1 through stage 4 chronic kidney disease, or unspecified chronic kidney disease; N18.30 Chronic kidney disease, stage 3 unspecified; I50.9 Heart failure, unspecified; G47.33 Obstructive sleep apnea (adult) (pediatric); G62.1 Alcoholic polyneuropathy; F10.21 Alcohol dependence, in remission; D69.6 Thrombocytopenia, unspecified; I49.9 Cardiac arrhythmia, unspecified; F03.90 Unspecified dementia, unspecified severity, without behavioral disturbance, psychotic disturbance, mood disturbance, and anxiety; F41.8 Other specified anxiety disorders; G62.9 Polyneuropathy, unspecified; E66.9 Obesity, unspecified; Z68.35 Body mass index [BMI] 35.0-35.9, adult; Z79.899 Other long term (current) drug therapy; Z88.1 Allergy status to other antibiotic agents; Z88.8 Allergy status to other drugs, medicaments and biological substances; Z51.5 Encounter for palliative care; X58.XXXA Exposure to other specified factors, initial encounter ==

== ENCOUNTER → 2019-12-19 | Outpatient (CLI) | payer MEDICARE ==
[~2019-12-19] MED LIST changes: +ASPIR 8181 M1 PO; +BENADRYL25 MG PO; +BENAZEPRIL-HCT1 EAC1 PO; +BISOPROLOL-HCT1 EACH PO; +LASIX40 MG PO; +LORAZEPAM1 MG PO; +MULTIPLE VITAM1 EACH PO; +OXYC5 PO; +ZINC220 PO
[2019-12-19 10:26] LABS: Creatinine Urine 48.5 mg/dL (27.00-270.00); Protein, Urine Quantitative 36.6 mg/dL (0.0-11.9)
== END | disposition home or self-care (01) ==
LOC: LAB 08:41 → LAB SHORT 08:41
PROVIDERS: Internal Medicine Nephrology
DX: N18.30 Chronic kidney disease, stage 3 unspecified (principal); D63.1 Anemia in chronic kidney disease; E83.41 Hypermagnesemia; R76.9 Abnormal immunological finding in serum, unspecified; R94.5 Abnormal results of liver function studies; R94.6 Abnormal results of thyroid function studies
CPT/HCPCS: 81050; 82043; 82570; 84156

== ENCOUNTER 2019-12-20 00:26 | Day surgery (SDC) | payer MEDICARE ==
[~2019-12-20 00:26] MED LIST changes: -ASPIR 8181 M1 PO; -BENADRYL25 MG PO; -BENAZEPRIL-HCT1 EAC1 PO; -BISOPROLOL-HCT1 EACH PO; -LASIX40 MG PO; -LORAZEPAM1 MG PO; -MULTIPLE VITAM1 EACH PO; -OXYC5 PO; -ZINC220 PO
== END 2019-12-20 12:00 | disposition home or self-care (01) ==
LOC: WOUND 00:26
DX: I96 Gangrene, not elsewhere classified (principal); L89.622 Pressure ulcer of left heel, stage 2; S91.104D Unspecified open wound of right lesser toe(s) without damage to nail, subsequent encounter; I48.0 Paroxysmal atrial fibrillation; I13.0 Hypertensive heart and chronic kidney disease with heart failure and stage 1 through stage 4 chronic kidney disease, or unspecified chronic kidney disease; N18.30 Chronic kidney disease, stage 3 unspecified; I50.9 Heart failure, unspecified; G47.33 Obstructive sleep apnea (adult) (pediatric); F10.21 Alcohol dependence, in remission; I87.2 Venous insufficiency (chronic) (peripheral); F03.90 Unspecified dementia, unspecified severity, without behavioral disturbance, psychotic disturbance, mood disturbance, and anxiety; F41.8 Other specified anxiety disorders; I49.9 Cardiac arrhythmia, unspecified; G62.9 Polyneuropathy, unspecified; E66.9 Obesity, unspecified; Z68.35 Body mass index [BMI] 35.0-35.9, adult; Z88.1 Allergy status to other antibiotic agents; Z88.8 Allergy status to other drugs, medicaments and biological substances; Z79.899 Other long term (current) drug therapy; X58.XXXD Exposure to other specified factors, subsequent encounter

== ENCOUNTER 2019-12-26 00:51 | Day surgery (SDC) | payer MEDICARE | END 2019-12-26 23:48 | disposition home or self-care (01) | LOC: WOUND 00:51 | DX: I96 Gangrene, not elsewhere classified (principal); L89.622 Pressure ulcer of left heel, stage 2; I87.2 Venous insufficiency (chronic) (peripheral); I13.0 Hypertensive heart and chronic kidney disease with heart failure and stage 1 through stage 4 chronic kidney disease, or unspecified chronic kidney disease; N18.30 Chronic kidney disease, stage 3 unspecified; I50.9 Heart failure, unspecified; I48.0 Paroxysmal atrial fibrillation; G47.33 Obstructive sleep apnea (adult) (pediatric); F10.21 Alcohol dependence, in remission; G62.9 Polyneuropathy, unspecified; I49.9 Cardiac arrhythmia, unspecified; F03.90 Unspecified dementia, unspecified severity, without behavioral disturbance, psychotic disturbance, mood disturbance, and anxiety; F41.8 Other specified anxiety disorders; E66.9 Obesity, unspecified; Z88.1 Allergy status to other antibiotic agents; Z88.8 Allergy status to other drugs, medicaments and biological substances; Z79.899 Other long term (current) drug therapy; Z51.5 Encounter for palliative care | CPT/HCPCS: G0463 ==

== ENCOUNTER 2020-01-02 00:33 | Day surgery (SDC) | payer MEDICARE ==
[~2020-01-02 00:33] MED LIST changes: +ASPIR 8181 M1 PO; +BENADRYL25 MG PO; +BENAZEPRIL-HCT1 EAC1 PO; +BISOPROLOL-HCT1 EACH PO; +LASIX40 MG PO; +LORAZEPAM1 MG PO; +MULTIPLE VITAM1 EACH PO; +OXYC5 PO; +ZINC220 PO
== END 2020-01-02 23:21 | disposition home or self-care (01) ==
LOC: WOUND 00:33
DX: L97.522 Non-pressure chronic ulcer of other part of left foot with fat layer exposed (principal); I73.9 Peripheral vascular disease, unspecified; I87.2 Venous insufficiency (chronic) (peripheral); I13.0 Hypertensive heart and chronic kidney disease with heart failure and stage 1 through stage 4 chronic kidney disease, or unspecified chronic kidney disease; I50.9 Heart failure, unspecified; N18.30 Chronic kidney disease, stage 3 unspecified; E66.9 Obesity, unspecified; G47.33 Obstructive sleep apnea (adult) (pediatric); Z88.1 Allergy status to other antibiotic agents; Z88.8 Allergy status to other drugs, medicaments and biological substances; Z68.35 Body mass index [BMI] 35.0-35.9, adult; Z79.899 Other long term (current) drug therapy; Z79.01 Long term (current) use of anticoagulants; Z79.82 Long term (current) use of aspirin

== ENCOUNTER 2020-01-06 10:36 | Day surgery (SDC) | payer MEDICARE ==
[~2020-01-06] VITALS: Ht 185.4 cm; Wt 116.8 kg
[2020-01-06] MEDS ORDERED: FOLI400 (11:06)
[2020-01-06] MEDS ORDERED: FURO20 (11:06)
== END 2020-01-06 12:55 | disposition home or self-care (01) ==
LOC: ORSCSDS 10:36
PROVIDERS: Internal Medicine Gastroenterology
PROC: 0DBK8ZX Excision of Ascending Colon, Via Natural or Artificial Opening Endoscopic, Diagnostic (ICD-10-PCS; principal; 2020-01-06 12:00)
PROC: 0DBH8ZX Excision of Cecum, Via Natural or Artificial Opening Endoscopic, Diagnostic (ICD-10-PCS; principal; 2020-01-06 12:00)
PROC: 0DBL8ZX Excision of Transverse Colon, Via Natural or Artificial Opening Endoscopic, Diagnostic (ICD-10-PCS; principal; 2020-01-06 12:00)
DX: D50.9 Iron deficiency anemia, unspecified (principal); D12.0 Benign neoplasm of cecum; D12.3 Benign neoplasm of transverse colon; K64.8 Other hemorrhoids; I48.0 Paroxysmal atrial fibrillation; I10 Essential (primary) hypertension; E78.5 Hyperlipidemia, unspecified; G47.33 Obstructive sleep apnea (adult) (pediatric); F41.9 Anxiety disorder, unspecified; E66.9 Obesity, unspecified; Z68.34 Body mass index [BMI] 34.0-34.9, adult; Z79.01 Long term (current) use of anticoagulants; Z79.899 Other long term (current) drug therapy; Z87.891 Personal history of nicotine dependence
CPT/HCPCS: 88305; J2704; J7120

== ENCOUNTER 2020-01-10 00:12 | Day surgery (SDC) | payer MEDICARE ==
[~2020-01-10 00:12] MED LIST changes: +FOLI400; +FURO20
== END 2020-01-10 23:06 | disposition home or self-care (01) ==
LOC: WOUND 00:12
DX: I96 Gangrene, not elsewhere classified (principal); L89.622 Pressure ulcer of left heel, stage 2; I87.2 Venous insufficiency (chronic) (peripheral); I11.0 Hypertensive heart disease with heart failure; I50.9 Heart failure, unspecified; F03.90 Unspecified dementia, unspecified severity, without behavioral disturbance, psychotic disturbance, mood disturbance, and anxiety; G62.9 Polyneuropathy, unspecified; F41.8 Other specified anxiety disorders; I49.9 Cardiac arrhythmia, unspecified; Z79.01 Long term (current) use of anticoagulants; Z79.82 Long term (current) use of aspirin; Z79.899 Other long term (current) drug therapy; Z88.1 Allergy status to other antibiotic agents; Z88.8 Allergy status to other drugs, medicaments and biological substances; Z51.5 Encounter for palliative care
CPT/HCPCS: G0463

== ENCOUNTER 2020-01-23 01:26 | Day surgery (SDC) | payer MEDICARE | END 2020-01-23 22:50 | disposition home or self-care (01) | LOC: WOUND 01:26 | DX: L97.522 Non-pressure chronic ulcer of other part of left foot with fat layer exposed (principal); I73.9 Peripheral vascular disease, unspecified; I87.2 Venous insufficiency (chronic) (peripheral); I13.0 Hypertensive heart and chronic kidney disease with heart failure and stage 1 through stage 4 chronic kidney disease, or unspecified chronic kidney disease; I50.9 Heart failure, unspecified; N18.30 Chronic kidney disease, stage 3 unspecified; E66.9 Obesity, unspecified; Z88.1 Allergy status to other antibiotic agents; Z88.8 Allergy status to other drugs, medicaments and biological substances; G47.33 Obstructive sleep apnea (adult) (pediatric); Z68.35 Body mass index [BMI] 35.0-35.9, adult; Z79.899 Other long term (current) drug therapy ==

== ENCOUNTER 2020-01-31 00:30 | Day surgery (SDC) | payer MEDICARE | END 2020-01-31 22:39 | disposition home or self-care (01) | LOC: WOUND 00:30 | DX: I96 Gangrene, not elsewhere classified (principal); L89.622 Pressure ulcer of left heel, stage 2; I87.2 Venous insufficiency (chronic) (peripheral); I13.0 Hypertensive heart and chronic kidney disease with heart failure and stage 1 through stage 4 chronic kidney disease, or unspecified chronic kidney disease; N18.30 Chronic kidney disease, stage 3 unspecified; I50.9 Heart failure, unspecified; I48.0 Paroxysmal atrial fibrillation; G47.33 Obstructive sleep apnea (adult) (pediatric); E66.9 Obesity, unspecified; I49.9 Cardiac arrhythmia, unspecified; G62.9 Polyneuropathy, unspecified; F03.90 Unspecified dementia, unspecified severity, without behavioral disturbance, psychotic disturbance, mood disturbance, and anxiety; F41.8 Other specified anxiety disorders; D69.6 Thrombocytopenia, unspecified; Z88.1 Allergy status to other antibiotic agents; Z88.8 Allergy status to other drugs, medicaments and biological substances; Z68.35 Body mass index [BMI] 35.0-35.9, adult; Z79.01 Long term (current) use of anticoagulants; Z79.82 Long term (current) use of aspirin; Z79.899 Other long term (current) drug therapy ==

== ENCOUNTER 2020-02-08 00:25 | Day surgery (SDC) | payer MEDICARE | END 2020-02-08 23:00 | disposition home or self-care (01) | LOC: WOUND 00:25 | DX: I96 Gangrene, not elsewhere classified (principal); L89.622 Pressure ulcer of left heel, stage 2; L97.422 Non-pressure chronic ulcer of left heel and midfoot with fat layer exposed; I87.2 Venous insufficiency (chronic) (peripheral); I13.0 Hypertensive heart and chronic kidney disease with heart failure and stage 1 through stage 4 chronic kidney disease, or unspecified chronic kidney disease; N18.30 Chronic kidney disease, stage 3 unspecified; F41.8 Other specified anxiety disorders; G62.9 Polyneuropathy, unspecified; I50.9 Heart failure, unspecified; I48.0 Paroxysmal atrial fibrillation; G47.33 Obstructive sleep apnea (adult) (pediatric); I49.9 Cardiac arrhythmia, unspecified; E66.9 Obesity, unspecified; Z88.1 Allergy status to other antibiotic agents; Z88.8 Allergy status to other drugs, medicaments and biological substances; Z79.01 Long term (current) use of anticoagulants; Z79.82 Long term (current) use of aspirin; Z79.899 Other long term (current) drug therapy | CPT/HCPCS: G0463 ==

== ENCOUNTER 2020-02-15 06:37 | Day surgery (SDC) | payer MEDICARE | END 2020-02-15 22:48 | disposition home or self-care (01) | LOC: WOUND 06:37 | DX: I96 Gangrene, not elsewhere classified (principal); L89.622 Pressure ulcer of left heel, stage 2; I87.2 Venous insufficiency (chronic) (peripheral); I13.0 Hypertensive heart and chronic kidney disease with heart failure and stage 1 through stage 4 chronic kidney disease, or unspecified chronic kidney disease; N18.30 Chronic kidney disease, stage 3 unspecified; I50.9 Heart failure, unspecified; I48.0 Paroxysmal atrial fibrillation; G47.33 Obstructive sleep apnea (adult) (pediatric); G62.9 Polyneuropathy, unspecified; F41.8 Other specified anxiety disorders; E66.9 Obesity, unspecified; Z68.35 Body mass index [BMI] 35.0-35.9, adult; Z88.1 Allergy status to other antibiotic agents; Z88.8 Allergy status to other drugs, medicaments and biological substances; Z79.01 Long term (current) use of anticoagulants; Z79.82 Long term (current) use of aspirin; Z79.899 Other long term (current) drug therapy; Z20.828 Contact with and (suspected) exposure to other viral communicable diseases | CPT/HCPCS: G0463 ==

== ENCOUNTER 2020-02-29 00:31 | Day surgery (SDC) | payer MEDICARE | END 2020-02-29 22:42 | disposition home or self-care (01) | LOC: WOUND 00:31 | DX: L97.522 Non-pressure chronic ulcer of other part of left foot with fat layer exposed (principal); R22.42 Localized swelling, mass and lump, left lower limb; I87.2 Venous insufficiency (chronic) (peripheral); I13.0 Hypertensive heart and chronic kidney disease with heart failure and stage 1 through stage 4 chronic kidney disease, or unspecified chronic kidney disease; N18.30 Chronic kidney disease, stage 3 unspecified; I50.9 Heart failure, unspecified; I48.0 Paroxysmal atrial fibrillation; G47.33 Obstructive sleep apnea (adult) (pediatric); E66.9 Obesity, unspecified; Z68.35 Body mass index [BMI] 35.0-35.9, adult; G62.1 Alcoholic polyneuropathy; F10.21 Alcohol dependence, in remission; Z86.14 Personal history of Methicillin resistant Staphylococcus aureus infection; Z79.01 Long term (current) use of anticoagulants; Z88.8 Allergy status to other drugs, medicaments and biological substances; Z88.1 Allergy status to other antibiotic agents ==

== ENCOUNTER 2020-03-08 00:15 | Day surgery (SDC) | payer MEDICARE ==
[~2020-03-08 00:15] MED LIST changes: +XARELTO10 M1 PO
== END 2020-03-08 23:53 | disposition home or self-care (01) ==
LOC: WOUND 00:15
DX: I96 Gangrene, not elsewhere classified (principal); L89.622 Pressure ulcer of left heel, stage 2; I87.2 Venous insufficiency (chronic) (peripheral); I49.9 Cardiac arrhythmia, unspecified; I11.0 Hypertensive heart disease with heart failure; I50.9 Heart failure, unspecified; F03.90 Unspecified dementia, unspecified severity, without behavioral disturbance, psychotic disturbance, mood disturbance, and anxiety; G62.9 Polyneuropathy, unspecified; F41.8 Other specified anxiety disorders; Z88.1 Allergy status to other antibiotic agents; Z88.2 Allergy status to sulfonamides; Z79.01 Long term (current) use of anticoagulants; Z79.82 Long term (current) use of aspirin; Z79.899 Other long term (current) drug therapy
CPT/HCPCS: A9270

== ENCOUNTER 2020-03-15 01:34 | Day surgery (SDC) | payer MEDICARE | END 2020-03-15 22:39 | disposition home or self-care (01) | LOC: WOUND 01:34 | DX: L97.522 Non-pressure chronic ulcer of other part of left foot with fat layer exposed (principal); R22.42 Localized swelling, mass and lump, left lower limb; I87.2 Venous insufficiency (chronic) (peripheral) | CPT/HCPCS: A9270; G0463 ==

== ENCOUNTER 2020-07-08 05:10 | Inpatient (IN) | payer MEDICARE ==
[~2020-07-08] VITALS: Ht 185.4 cm; Wt 116.9 kg
[2020-07-08 05:42] LABS: BASOPHILS ABSOLUTE AUTO 0.12 K/mm3 (0.00-0.23); BASOPHILS PERCENT AUTO 2 % (0-2); EOSINOPHILS ABSOLUTE AUTO 0.07 K/mm3 (0.00-0.68); EOSINOPHILS PERCENT AUTO 1 % (0-6); Hematocrit 27.1 % (37.0-53.0); Hemoglobin 8.8 g/dL (13.5-17.5); IMMATURE GRAN ABSOLUTE AUTO 0.07 K/mm3 (0.00-0.10); IMMATURE GRAN PERCENT AUTO 1 % (0-1); LYMPHOCYTES ABSOLUTE AUTO 2.58 K/mm3 (0.84-5.20); LYMPHOCYTES PERCENT AUTO 33 % (21-46); MONOCYTES ABSOLUTE AUTO 0.82 K/mm3 (0.16-1.47); MONOCYTES PERCENT AUTO 10 % (4-13); Mean Corpuscular HGB Conc 32.5 g/dL (31.5-36.5); Mean Corpuscular Volume 105 fL (80-100); Mean Platelet Volume 9.8 fL (9.1-12.4); NEUTROPHILS ABSOLUTE AUTO 4.23 K/mm3 (1.96-9.15); NEUTROPHILS PERCENT AUTO 54 % (41-73); Platelet Count 100 K/mm3 (150-400); RDW Coefficient Variation 14.7 % (11.7-14.2); RDW Standard Deviation 56.9 fL (35.1-46.3); Red Blood Cell Count 2.59 M/mm3 (4.30-5.90); White Blood Cell Count 7.89 K/mm3 (4.00-11.30)
[2020-07-08 05:52] LABS: Albumin, Blood 3.1 g/dL (3.4-5.0); Albumin/Globulin Ratio 0.7 (0.8-1.8); Bilirubin, Total 0.8 mg/dL (0.1-1.0); Bun/Creatinine Ratio 12.3 (12.0-20.0); Calcium, Blood 9.4 mg/dL (8.5-10.1); Creatinine, Blood 1.87 mg/dL (0.60-1.20); Globulin, Blood 4.5 g/dL (2.2-4.0); Potassium, Blood 2.9 mmol/L (3.5-5.5); Total Protein, Blood 7.6 g/dL (6.4-8.2)
[2020-07-08 10:11] LABS: Adenovirus F 40/41 Not Detected (NOT DETECT); Astrovirus Not Detected (NOT DETECT); Campylobacter Sp Not Detected (NOT DETECT); Cryptosporidium Not Detected (NOT DETECT); Cyclospora Cayetanensis Not Detected (NOT DETECT); E. Coli O157 Not Detected (NOT DETECT); Entamoeba Histolytica Not Detected (NOT DETECT); Enteroaggregative E. coli-EAEC Not Detected (NOT DETECT); Enteropathogenic E. coli-EPEC Not Detected (NOT DETECT); Enterotoxigenic E. coli-ETEC Not Detected (NOT DETECT); Giardia Lamblia Not Detected (NOT DETECT); Norovirus GI/GII Not Detected (NOT DETECT); Plesiomonas Shigelloides Not Detected (NOT DETECT); Rotavirus A Not Detected (NOT DETECT); Salmonella Sp Not Detected (NOT DETECT); Sapovirus Not Detected (NOT DETECT); Shiga Toxin-prod E. coli-STEC Not Detected (NOT DETECT); Shigella/Enteroin E. coli-EIEC Not Detected (NOT DETECT); Vibrio Cholerae Not Detected (NOT DETECT); Vibrio Sp Not Detected (NOT DETECT); Yersinia Enterocolitica Not Detected (NOT DETECT)
[2020-07-08] MEDS ORDERED: VANCOCIN HCL125 MG PO (10:49)
[2020-07-08] MEDS ORDERED: POTA20PAC PO (10:53)
[2020-07-08 11:29] LABS: SARS-Cov-2 (COVID-19) PCR, MMC NEGATIVE (NEGATIVE)
[2020-07-08] MEDS ORDERED: AMLO10 PO (16:26)
[2020-07-08] MEDS ORDERED: METO50ER PO (16:27)
--- NOTE | 2020-07-08 17:46 | NUR ---
PT AOX3 AND TRYS TO BE COOPERATIVE OF CARE. PT HAS DIARHEA AND NEEDS THE BED GRANT FREQUENTLY. PT VERY SHAKEY AND KEEPS SAYING HOW COLD HE IS. LOW GRADE FEVER AT THIS TIME TREATED PER EMAR. PT ALSO ARRIVED WITH HIGH BP AND DR KHAN NOTIFIED IMMEDIATELY. DR KHAN ADDED MEDIACATION TO EMAR AND PT WILL BE MONITORED CLOSELY.
--- NOTE | 2020-07-08 19:32 | NUR ---
ETOH WITHDRAWAL PT REPORTS HE NORMALLY DRINKS ROUGHLY 3 LARGE HARD ALCOHOL BEVERAGES PER NIGHT, STATES LAST DRINK WAS "LAST NIGHT" 07/07/20. PT REPORTS HE FEELS LIKE HE IS WITHDRAWLING & STATES HE HAS GONE THROUGH WITHDRAWLS BEFORE. ASSESSED CIWA & GOT 13. INFORMED HOSPITALIST RADHA Chacon, HE STATED HE WOULD PLACE WITHDRAWL ORDERS IN. WILL CONT TO MONITOR PT.
--- NOTE | 2020-07-09 05:08 | NUR ---
SHIFT SUMMARY AOX3-UNAWARE DATE. FORGETFUL @TIMES. VSS. TELE AFIB AVG HR 120. REPORTS DAILY ETOH USE, LAST DRINK 07/07. HAS TREMORS, OLSON, NAUSEA, ANXIETY, FIGETY. CIWA RANGING 5-13, MEDICATED c LIBRIUM FOR CIWA >8. DX c C DIFF, ONLY 1 BM THIS SHIFT. HAS DARK JUSTINO URINE OUTPUT. REPORTS HE LIVES c , HOWEVER THEY LIVE IN SEPERATE AREAS OF THE HOUSE, HE DOESNT SEE HER MUCH & SHE DOESN'T HELP c HIS CARE. BLE HAVE +1 EDEMA, SCRATCHES, SCABS. CALL LIGHT IN REACH & PT ABLE TO MAKE NEEDS KNOWN. WILL MONITOR.
[2020-07-09 05:16] LABS: BASOPHILS ABSOLUTE AUTO 0.07 K/mm3 (0.00-0.23); BASOPHILS PERCENT AUTO 1 % (0-2); EOSINOPHILS ABSOLUTE AUTO 0.13 K/mm3 (0.00-0.68); EOSINOPHILS PERCENT AUTO 2 % (0-6); Hematocrit 23.3 % (37.0-53.0); Hemoglobin 7.5 g/dL (13.5-17.5); IMMATURE GRAN ABSOLUTE AUTO 0.06 K/mm3 (0.00-0.10); IMMATURE GRAN PERCENT AUTO 1 % (0-1); LYMPHOCYTES ABSOLUTE AUTO 1.19 K/mm3 (0.84-5.20); LYMPHOCYTES PERCENT AUTO 18 % (21-46); MONOCYTES ABSOLUTE AUTO 0.57 K/mm3 (0.16-1.47); MONOCYTES PERCENT AUTO 9 % (4-13); Mean Corpuscular HGB 34.1 pg (26.0-34.0); Mean Corpuscular HGB Conc 32.2 g/dL (31.5-36.5); Mean Corpuscular Volume 106 fL (80-100); Mean Platelet Volume 10.4 fL (9.1-12.4); NEUTROPHILS ABSOLUTE AUTO 4.47 K/mm3 (1.96-9.15); NEUTROPHILS PERCENT AUTO 69 % (41-73); Platelet Count 59 K/mm3 (150-400); RDW Coefficient Variation 14.7 % (11.7-14.2); RDW Standard Deviation 57.1 fL (35.1-46.3); White Blood Cell Count 6.49 K/mm3 (4.00-11.30)
[2020-07-09 05:37] LABS: Bun/Creatinine Ratio 11.7 (12.0-20.0); Calcium, Blood 8.3 mg/dL (8.5-10.1); Creatinine, Blood 1.88 mg/dL (0.60-1.20); Potassium, Blood 3.3 mmol/L (3.5-5.5)
--- NOTE | 2020-07-09 11:23 | NUR ---
ADMIT: 07/08/20 DISCHARGE: DX: Pneumonia CC: kwilcox CATHERINE CALL: RESIDENCE: Home with spouse CAREGIVER: Shonda Ireland, Spouse / Partner, Pippa Montez, Child, DX: alcohol w/d syndrome, Afib, anxiety, HTN, CHF, edema, see list DME: Wheelchair, compression stockings CCM: Referral- 2019 HOME HEALTH: [facility]- SUMMARY: Admit: 07/08/20 07/09/20- per chart review with Dr. Boswell, pt to stay, no plan for d/c at this time. PT saw pt and assessment states that he has unsafe home environment, no support from who lives in different part of the house. Pt going through alcohol withdrawal. CIWA was 3. Recommendation for pt not to return home, SNF and then to adult foster home, assisted living/LTC facility. -darrin
--- NOTE | 2020-07-09 16:33 | NUR ---
Echocardiogram completed.
--- NOTE | 2020-07-09 17:52 | NUR ---
SHIFT SUMMARY PT ALERT AND FORGETFUL AT TIMES. PT DID POORLY DURING PT/OT EVAL; BEDREST FOR NOW. PT DID NOT HAVE A BM TODAY. GI CONSULTED FOR ANEMIA TODAY. PT VERY POOR HISTORIAN. CIWA SCORE LESS THAN 4 TODAY. NO PAIN OR SOB NOTED. BED IS IN THE LOWEST POSITION AND CALL LIGHT WITHIN REACH
--- NOTE | 2020-07-09 21:44 | NUR ---
CHANGES c URINE PT HAVING CRANBERRY & JUSTINO COLOR URINE, STATES IT OCCASIONALLY HURTS c URINATION. DR DAVIS ORDERED UA ALONG c STAT HGB. ALSO ASKED TO MAKE SURE PT HAS NO BLOOD THINNERS ORDERED. PT IS CURRENTLY NOT ON BLOOD THINNERS. SENT UA & WILL MONITOR.
[2020-07-09 21:59] LABS: Source, Urine Clean Catch
[2020-07-09 22:05] LABS: Appearance, Urine Hazy (Clear); Bilirubin, Urine Neg (Neg); Blood, Urine 5+ (Neg); Color, Urine Amber (P-Yellow); Glucose Qualitative, Urine Neg (Neg); Ketones, Urine Neg (Neg); Leukocyte Esterase, Urine 2+ (Neg); Nitrite, Urine Neg (Neg); Protein, Urine 3+ (Neg); Urobilinogen, Urine NORM (Normal); pH, Urine 6.5 (5.0-8.0)
[2020-07-09 22:12] LABS: Red Blood Cells, Urine TNTC /hpf (0-2)
[2020-07-09 22:13] LABS: Bacteria Mod /hpf; Squamous Epithelial Cells Few /hpf (Few)
--- NOTE | 2020-07-10 05:03 | NUR ---
SHIFT SUMMARY AOX3. VSS. TELE AFIB @85. DENIES PAIN, N/V OR DYSPNEA. HAD DARK JUSTINO TO LIGHT PINK/CRANBERRY COLORED URINE. REPORTED OCCASIONAL PAIN c URINATING, "WORSE YESTERDAY". SENT UA TO LAB. CIWA <5 TONIGHT. NO BM TONIGHT, PENDING OCCULT STOOL SAMPLE. CALL LIGHT IN REACH & PT ABLE TO MAKE NEEDS KNOWN.
[2020-07-10 05:39] LABS: Hematocrit 25.2 % (37.0-53.0); Mean Corpuscular HGB Conc 31.7 g/dL (31.5-36.5); Mean Corpuscular Volume 107 fL (80-100); Mean Platelet Volume 10.9 fL (9.1-12.4); Platelet Count 54 K/mm3 (150-400); RDW Coefficient Variation 14.6 % (11.7-14.2); RDW Standard Deviation 57.7 fL (35.1-46.3); RETICULOCYTE ABSOLUTE 0.0611 M/mm3 (0.0200-0.1100); Red Blood Cell Count 2.35 M/mm3 (4.30-5.90); White Blood Cell Count 7.43 K/mm3 (4.00-11.30)
[2020-07-10 06:23] LABS: Albumin, Blood 2.5 g/dL (3.4-5.0); Albumin/Globulin Ratio 0.7 (0.8-1.8); Bilirubin, Total 0.7 mg/dL (0.1-1.0); Bun/Creatinine Ratio 12.4 (12.0-20.0); Calcium, Blood 8.3 mg/dL (8.5-10.1); Creatinine, Blood 2.02 mg/dL (0.60-1.20); Globulin, Blood 3.5 g/dL (2.2-4.0); Percent Saturation 12.8 % (20.0-50.0); Phosphorus, Blood 3.3 mg/dL (2.5-4.9); Potassium, Blood 3.6 mmol/L (3.5-5.5)
[2020-07-10 07:21] LABS: BASOPHILS ABSOLUTE MAN 0.07 K/mm3 (0.00-0.23); BASOPHILS PERCENT MAN 1 % (0-2); EOSINOPHILS ABSOLUTE MAN 0.44 K/mm3 (0.00-0.68); EOSINOPHILS PERCENT MAN 6 % (0-6); LYMPHOCYTES ABSOLUTE MAN 2.08 K/mm3 (0.84-5.20); LYMPHOCYTES PERCENT MAN 28 % (21-46); MONOCYTES ABSOLUTE MAN 0.96 K/mm3 (0.16-1.47); MONOCYTES PERCENT MAN 13 % (4-13); NEUTROPHILS ABSOLUTE MAN 3.86 K/mm3 (1.96-9.15); SEG NEUTROPHILS PERCENT MAN 52 % (41-73); TOTAL CELLS COUNTED 100
--- NOTE | 2020-07-10 07:44 | NUR ---
CALLED DR RAYMOND CRUZ FOR CRITICAL LAB VALUE OF MAG 1.0. NO ORDER AT THIS TIME.
[2020-07-10 10:14] LABS: Stool Occult Bld Immuno 1 Positive (NEGATIVE)
[2020-07-10] MEDS ORDERED: FOLI1 PO (11:47)
[2020-07-10] MEDS ORDERED: PANT40 PO (11:49)
[2020-07-10] MEDS ORDERED: MELATONIN3 M1 PO (11:51)
--- NOTE | 2020-07-10 14:10 | NUR ---
PT SEEMED LIKE HE HAD AN ADVERSE RXN FOR MAG IVPGB; CHECKED THE VS WHICH IS WNL; NO SOB OR ITCHING. NO IV INFILTRATION NOTED; PULLED THE IV PER PT REQUEST, AND STARTED A NEW IV. THE IV MAG WAS ALMOST GONE WHEN I STARTED NOTICING IT. CALLED THE DR AND INFORMED ABOUT THE SITUATION; DR STATED THAT THE PETECHIAE WAS THERE WHEN HE ASSESSED THE PT THIS AFTERNOON; NO ORDERS NEEDED.
--- NOTE | 2020-07-10 17:44 | NUR ---
SHIFT SUMMARY PT ALERTX3; CONFUSED AT TIMES. PT WORKED WITH PT/OT TODAY. PT DENIES ANY CP OR SOB. PT HAD A SMALL LOOSE BM TODAY X1 AND SENT TO LAB FOR OCCULT STOOL, WHICH CAME BACK POSITIVE. SENT MRSA SWAB TO LAB TODAY; AWAITS FOR RESULT. PULMONOLGIST CONSULTED TODAY. PT URINE STILL COLOR PINKISH/CRANBERRY AND DR AWARE THIS AM. PT GIVEN 1 BAG OF MAG DUE TO CRITICAL LAB VALUE THIS AM. MED REC STILL NOT DONE; THIS RN CALLED THE PHARMACY TO FAXED THE MED LIST TO VERIFY WITH THE . HOWEVER, YESTERDAY THE WAS NOT ABLE TO CLARIFIED ALL CURRENT THE MEDICATION LIST. BED IS IN THE LOWEST POSITION AND CALL LIGHT WITHIN REACH.
[2020-07-11 05:42] LABS: BASOPHILS ABSOLUTE AUTO 0.06 K/mm3 (0.00-0.23); BASOPHILS PERCENT AUTO 1 % (0-2); EOSINOPHILS ABSOLUTE AUTO 0.37 K/mm3 (0.00-0.68); EOSINOPHILS PERCENT AUTO 5 % (0-6); Hematocrit 25.2 % (37.0-53.0); Hemoglobin 8.1 g/dL (13.5-17.5); IMMATURE GRAN ABSOLUTE AUTO 0.08 K/mm3 (0.00-0.10); IMMATURE GRAN PERCENT AUTO 1 % (0-1); LYMPHOCYTES ABSOLUTE AUTO 1.66 K/mm3 (0.84-5.20); LYMPHOCYTES PERCENT AUTO 22 % (21-46); MONOCYTES ABSOLUTE AUTO 1.03 K/mm3 (0.16-1.47); MONOCYTES PERCENT AUTO 13 % (4-13); Mean Corpuscular HGB 34.2 pg (26.0-34.0); Mean Corpuscular HGB Conc 32.1 g/dL (31.5-36.5); Mean Corpuscular Volume 106 fL (80-100); Mean Platelet Volume 10.7 fL (9.1-12.4); NEUTROPHILS ABSOLUTE AUTO 4.48 K/mm3 (1.96-9.15); NEUTROPHILS PERCENT AUTO 58 % (41-73); Platelet Count 56 K/mm3 (150-400); RDW Coefficient Variation 14.4 % (11.7-14.2); RDW Standard Deviation 55.2 fL (35.1-46.3); Red Blood Cell Count 2.37 M/mm3 (4.30-5.90); White Blood Cell Count 7.68 K/mm3 (4.00-11.30)
[2020-07-11 06:06] LABS: Albumin, Blood 2.6 g/dL (3.4-5.0); Albumin/Globulin Ratio 0.7 (0.8-1.8); Bilirubin, Total 0.8 mg/dL (0.1-1.0); Bun/Creatinine Ratio 12.8 (12.0-20.0); Calcium, Blood 8.2 mg/dL (8.5-10.1); Creatinine, Blood 2.18 mg/dL (0.60-1.20); Globulin, Blood 3.6 g/dL (2.2-4.0); Magnesium, Blood 1.2 mg/dL (1.6-2.4); Potassium, Blood 3.2 mmol/L (3.5-5.5); Total Protein, Blood 6.2 g/dL (6.4-8.2)
--- NOTE | 2020-07-11 06:32 | NUR ---
SHIFT SUMMARY AOX3-FORGETFUL, SLOW TO RESPOND. SLEPT WELL T/O NIGHT. VSS. TELE AFIB @69. DENIES PAIN, N/V OR DYSPNEA. CONDOM CATH PATENT & DRAINING CLEAR PINK/ORANGE URINE. NO BM THIS SHIFT. BEDREST @THIS TIME, PT WORKING c PATIENT. CALL LIGHT IN REACH & PT ABLE TO MAKE NEEDS KNOWN.
--- NOTE | 2020-07-11 15:32 | NUR ---
07/10/20- MET WITH PT AND IN THE ROOM. DISCUSSED RECOMMENDATIONS FOR PT TO GO TO SNF. THAT PACKET HAS BEEN CREATED AND CAN BE SENT OFF FOR REVIEW. DISCUSSED PLANS FOR POST D/C. IDEAL SITUATION IS FOR PT TO GET STRONGER SO HE CAN RETURN HOME AND RESUME HOME HEALTH WITH [place]. DISCUSSED WITH THAT THERE ARE CAREGIVERS THAT SHE CAN HIRE FOR SUPPLEMENTAL CARE. WOULD LIKE THIS LIST. BRIEFLY DISCUSSED ASSISTED LIVING AND ADULT [facility] SNF. PROVIDED THEM INFORMATION FOR LOCAL ASSISTED [facility]ACILITIES [facility]. EXPRESSED THAT HE DOESN'T WANT TO BE A BURDEN ON HIS OR TOO MUCH FOR HER TO TAKE CARE OF. ENCOURAGED PT AND TO DISCUSS THEIR OPTIONS AND WHAT THEY WOULD DO IN AN IDEAL SITUATION AND THEN IF PT DOESN'T GET BETTER. FAXED PACKET TO [facility] FOR REVIEW AND WILL NOTIFY AND PT ONCE [facility] HAS REVIEWED HIS PACKET. EXPLAINED THAT THIS WILL BE TOMORROW DUE TO IT BEING LATE IN THE DAY. THEY ACKNOWLEDGED UNDERSTANDING. ALSO, EXPLAINED EFM'S ROLES IN THEIR CARE DURING AND AFTER HOSPITAL CARE, INCLUDING CATHERINE. -MISAEL
--- NOTE | 2020-07-11 16:55 | NUR ---
PATIENT IS ALERT AND ORIENTED; PLEASANT AND COOPERATIVE WITH CARE. HAS HAD SEVERAL LOOSE BMs TODAY. CONTINUES ON PO AND IV ABX WITHOUT S/SX OF ADVERSE REACTIONS WITHOUT S/SX OF ADVERSE REACTIONS NOTED OR REPORTED. VITALS HAVE BEEN STABLE. PATIENT HAS BEEN BEDBOUND AND EXTREMELY WEAK WHILE WORKING WITH THERAPY. PATIENT CALLS APPROPRIATELY FOR STAFF ASSIST NEEDED. PATIENT RESTING IN BED AT THIS TIME; CALL LIGHT IN REACH.
--- NOTE | 2020-07-12 03:22 | NUR ---
SHIFT SUMMARY PATIENT HAD NO ACUTE CHANGES OBSERVED. AXOX 3 AND FORGETFUL AT TIMES. BEDREST. PIV REMAINS INTACT. VALUE ANALYST REPORTS A-FIB AVERAGE 80'S. ORAL VANCO GIVEN PER EMAR. DENIES PAIN, SOB, AND N/V. BOWEL MEDICATION HELD WITH DAY RN REPORT OF LOOSE STOOLS. NO ALCOHOLIC WITHDRAWALS NOTED. VSS/AFEBRILE. CALL LIGHT IN REACH. BED IN LOWEST POSITION. WILL CONTINUE TO MONITOR UNTIL DAY SHIFT NURSE ASSUMES CARE.
[2020-07-12 08:40] LABS: BASOPHILS ABSOLUTE AUTO 0.06 K/mm3 (0.00-0.23); BASOPHILS PERCENT AUTO 1 % (0-2); EOSINOPHILS ABSOLUTE AUTO 0.24 K/mm3 (0.00-0.68); EOSINOPHILS PERCENT AUTO 3 % (0-6); Hematocrit 26.5 % (37.0-53.0); Hemoglobin 8.6 g/dL (13.5-17.5); IMMATURE GRAN PERCENT AUTO 1 % (0-1); LYMPHOCYTES ABSOLUTE AUTO 1.82 K/mm3 (0.84-5.20); LYMPHOCYTES PERCENT AUTO 23 % (21-46); MONOCYTES ABSOLUTE AUTO 1.17 K/mm3 (0.16-1.47); MONOCYTES PERCENT AUTO 15 % (4-13); Mean Corpuscular HGB 34.3 pg (26.0-34.0); Mean Corpuscular HGB Conc 32.5 g/dL (31.5-36.5); Mean Corpuscular Volume 106 fL (80-100); Mean Platelet Volume 11.4 fL (9.1-12.4); NEUTROPHILS ABSOLUTE AUTO 4.44 K/mm3 (1.96-9.15); NEUTROPHILS PERCENT AUTO 57 % (41-73); Platelet Count 66 K/mm3 (150-400); RDW Coefficient Variation 14.3 % (11.7-14.2); RDW Standard Deviation 54.9 fL (35.1-46.3); Red Blood Cell Count 2.51 M/mm3 (4.30-5.90); White Blood Cell Count 7.83 K/mm3 (4.00-11.30)
[2020-07-12 08:52] LABS: Albumin, Blood 2.6 g/dL (3.4-5.0); Albumin/Globulin Ratio 0.6 (0.8-1.8); Bilirubin, Total 0.9 mg/dL (0.1-1.0); Calcium, Blood 8.4 mg/dL (8.5-10.1); Creatinine, Blood 2.33 mg/dL (0.60-1.20); Magnesium, Blood 1.3 mg/dL (1.6-2.4); Phosphorus, Blood 4.1 mg/dL (2.5-4.9); Potassium, Blood 3.2 mmol/L (3.5-5.5); Total Protein, Blood 6.6 g/dL (6.4-8.2)
--- NOTE | 2020-07-12 10:50 | NUR ---
PT WORKING WITH OT AND WAS ASSISTED UPTO BSC. WHILE SITTING DOWN ONTO THE BSC HE C/O OF EXTREME DIZZINESS, REQUIRED MAX ASSIST BACK TO BED. HEART RATE PER TELE WAS UPTO 160 BPM. AFTER RETURNING TO BED HR DOWN TO 109 AND VS NORMAL. WILL MONITOR.
--- NOTE | 2020-07-12 15:05 | NUR ---
PROVIDER CONSULT CONSULT FOR DR IQBAL CALLED TO OFFICE AT 1500 TODAY, ALSO CONSULT FOR PALLIATIVE CARE, MESSAGE LEFT
[2020-07-12 16:06] LABS: Magnesium, Blood 1.2 mg/dL (1.6-2.4); Potassium, Blood 3.6 mmol/L (3.5-5.5)
--- NOTE | 2020-07-12 16:38 | NUR ---
LABS AND BLADDER SCAN KCL LEVEL IS 3.6 AND MAG LEVEL IS 1.2 AND BLADDER SCAN SHOWS 353. DR IQBAL CALLED WITH ABOVE RESULTS, ORDERS RECEIVED FOR 1.5 GM MAG SULFATE IV X1 AND PSA LAB FOR THE AM.
--- NOTE | 2020-07-12 18:35 | NUR ---
PT WITH SYNCOPABLE EPISODE WHILE WORKING WITH OT THIS MORNING, DIZZY AND SOB, CHEST XRAY ORDERED AND RECEIVED, DR IQBAL CONSULT AND PALLIATIVE CARE CONSULT. DR IQBAL IN TO SEE PT THIS AFTERNOON. MAG LEVEL LOW AND RECEIVED 1.5 GM MAG RIDER THIS AFTERNOON. NO ACUTE CHANGES NOTED, WILL CONTINUE TO MONITOR AND REPORT TO ONCOMING RN
--- NOTE | 2020-07-13 03:53 | NUR ---
SHIFT SUMMARY PATIENT HAD NO ACUTE CHANGES OBSERVED. AXOX 3 AND BEDREST. CONDOM CATH USED DURING SHIFT. PIV REMAINS INTACT. COLORING ROOM MAN REPORTS A-FIB AVERAGE 90'S. ORAL VANCO GIVEN PER EMAR. VSS/AFEBRILE. DENIES PAIN, SOB, AND N/V. COOPERATIVE WITH CARE. CALL LIGHT IN REACH. BED IN LOWEST POSITION. WILL CONTINUE TO MONITOR UNTIL DAY SHIFT NURSE ASSUMES CARE.
[2020-07-13 05:35] LABS: BASOPHILS ABSOLUTE AUTO 0.07 K/mm3 (0.00-0.23); BASOPHILS PERCENT AUTO 1 % (0-2); EOSINOPHILS ABSOLUTE AUTO 0.34 K/mm3 (0.00-0.68); EOSINOPHILS PERCENT AUTO 4 % (0-6); Hematocrit 25.2 % (37.0-53.0); Hemoglobin 8.2 g/dL (13.5-17.5); IMMATURE GRAN ABSOLUTE AUTO 0.17 K/mm3 (0.00-0.10); IMMATURE GRAN PERCENT AUTO 2 % (0-1); LYMPHOCYTES ABSOLUTE AUTO 1.51 K/mm3 (0.84-5.20); LYMPHOCYTES PERCENT AUTO 18 % (21-46); MONOCYTES ABSOLUTE AUTO 1.47 K/mm3 (0.16-1.47); MONOCYTES PERCENT AUTO 18 % (4-13); Mean Corpuscular HGB 34.2 pg (26.0-34.0); Mean Corpuscular HGB Conc 32.5 g/dL (31.5-36.5); Mean Corpuscular Volume 105 fL (80-100); Mean Platelet Volume 10.8 fL (9.1-12.4); NEUTROPHILS ABSOLUTE AUTO 4.86 K/mm3 (1.96-9.15); NEUTROPHILS PERCENT AUTO 58 % (41-73); Platelet Count 79 K/mm3 (150-400); RDW Coefficient Variation 14.2 % (11.7-14.2); RDW Standard Deviation 54.2 fL (35.1-46.3); White Blood Cell Count 8.42 K/mm3 (4.00-11.30)
[2020-07-13 05:48] LABS: Alanine Aminotransfer (ALT/SGP 9 U/L (12-78); Albumin, Blood 2.6 g/dL (3.4-5.0); Albumin/Globulin Ratio 0.6 (0.8-1.8); Alk Phos 65 U/L (50-136); Anion Gap 6 mmol/L (6-16); Aspartate Aminotrans (AST/SGOT 12 U/L (12-37); Bilirubin, Total 0.6 mg/dL (0.1-1.0); Blood Urea Nitrogen 35 mg/dL (8-24); CO2, Blood 31 mmol/L (21-32); Calcium, Blood 8.3 mg/dL (8.5-10.1); Chloride, Blood 97 mmol/L (98-108); Creatinine, Blood 2.92 mg/dL (0.60-1.20); Glomerular Filtration Rate 23 (60-); Glucose, Blood 96 mg/dL (70-99); Magnesium, Blood 1.5 mg/dL (1.6-2.4); Phosphorus, Blood 3.9 mg/dL (2.5-4.9); Potassium, Blood 3.6 mmol/L (3.5-5.5); Sodium, Blood 134 mmol/L (136-145); Total Protein, Blood 6.6 g/dL (6.4-8.2)
--- NOTE | 2020-07-13 11:16 | NUR ---
ORTHOSTATIC VS PT WORKING WITH PT, VS TAKEN BY PHYSICAL THERAPIST WITH ORTHOSTATIC CHANGES AND PT SYMPTOMATIC. DR RICE IS AWARE OF THESE RESULTS LYIN/79, 97% 100 SITTIN/60, 97% 100
--- NOTE | 2020-07-13 13:38 | NUR ---
07/13/20- per Dr. Allen and chart review, pt had syncopal episode last night and again this morning. Pt has had an increased in temp (99.2) last night and early this morning. Pt will not be d/c to SNF today. Stopped by pt's room and reviewed CATHERINE letter with him, pt acknowledged understanding. Also dropped off information for [email or web address] [facility]. If pt continues to improve, pt could potentially d/c Sun or Mon. to [facility] Packet sent and reviewed on 07/12/20. Transportation will need to be set up through [facility] at discharge. -darrin
--- NOTE | 2020-07-14 04:38 | NUR ---
SHIFT SUMMARY ASSUMED CARE OF PT AT 1900. PT IS A/OX4. HEART SOUNDS IRREGULAR, TELE SHOWS AFIB. LUNG SOUNDS ARE DIMINISHED ON THE R. PT USED CONDOM CATHETER T/O THE NIGHT. PT ALSO HAD A BM. PT L LEG IS SWOLLEN AND HARD, PT STATES THIS IS NORMAL FOR HIM. PT AWAKE NERVOUS ABOUT GOING TO A SNF. CALL LIGHT IN REACH, BED IN LOWEST POSITON.
[2020-07-14 05:19] LABS: Hematocrit 24.9 % (37.0-53.0); Hemoglobin 8.1 g/dL (13.5-17.5)
[2020-07-14 05:30] LABS: Albumin, Blood 2.5 g/dL (3.4-5.0); Anion Gap 6 mmol/L (6-16); Blood Urea Nitrogen 37 mg/dL (8-24); Bun/Creatinine Ratio 12.1 (12.0-20.0); CO2, Blood 31 mmol/L (21-32); Calcium, Blood 8.4 mg/dL (8.5-10.1); Chloride, Blood 97 mmol/L (98-108); Creatinine, Blood 3.05 mg/dL (0.60-1.20); Glomerular Filtration Rate 22 (60-); Glucose, Blood 95 mg/dL (70-99); Magnesium, Blood 1.7 mg/dL (1.6-2.4); Phosphorus, Blood 3.7 mg/dL (2.5-4.9); Potassium, Blood 3.5 mmol/L (3.5-5.5); Sodium, Blood 134 mmol/L (136-145)
--- NOTE | 2020-07-14 16:25 | NUR ---
SHIFT SUMMARY PATIENT DENIES PAIN, NAUSEA, AND SHORTNESS OF BREATH. PATIENT EATING AND DRINKING WELL. PATIENT UP IN CHAIR TWO ASSIST WITH GAIT BELT. UP IN RECLINER SEVERAL HOURS THIS MORNING. TELEMETRY READING AFIB IN THE 80'S. CONDOM CATH IN PLACE AND DRAINING DARK URINE. DAUGHTER VISITED FROM [place] THIS AFTERNOON. PLEASANT AND COOPERATIVE WITH CARE.
--- NOTE | 2020-07-15 04:24 | NUR ---
SHIFT SUMMARY ASSUMED CARE OF PT AT 1900. PT IS A/OX3 AND VERY FORGETFUL THIS EVENING. PT COMPLAINED THAT PEOPLE WERE TAKING HIS URINALS BUT PT HAD A CONDOM CATHER ONE, WHEN ASKED IF HE WASNT IT OFF HE SAID NO AND HE DIDNT NEED THE URINALS AND APOLIGIZED BEUCASE HE GETS CONFUSED AT TIMES. PT ALSO FORGOT THAT HE GOT HIS EYE DROPS DURING THE NIGHT AND KEPT ASKING FOR THEM EVEN AFTER ADMINISTERED. HEART SOUNDS IRREGULAR, TELE SHOWS AFIB. LUNG SOUNDS CLEAR. PT IS HAVING SOFT STOOLS, HE HAD TWO THIS SHIFT. PT IS INCONTINENT AND USES CONDOM CATH. PT L LEG IS SWOLLEN BUT PT STATES THIS IS NORMAL. CALL LIGHT IN REACH, BED IN LOWEST POSITION.
[2020-07-15 05:13] LABS: Hematocrit 25.3 % (37.0-53.0); Hemoglobin 8.2 g/dL (13.5-17.5)
[2020-07-15 05:47] LABS: Albumin, Blood 2.6 g/dL (3.4-5.0); Anion Gap 7 mmol/L (6-16); Blood Urea Nitrogen 36 mg/dL (8-24); Bun/Creatinine Ratio 12.1 (12.0-20.0); CO2, Blood 29 mmol/L (21-32); Calcium, Blood 8.7 mg/dL (8.5-10.1); Chloride, Blood 99 mmol/L (98-108); Creatinine, Blood 2.98 mg/dL (0.60-1.20); Glomerular Filtration Rate 22 (60-); Glucose, Blood 104 mg/dL (70-99); Magnesium, Blood 1.7 mg/dL (1.6-2.4); Phosphorus, Blood 3.9 mg/dL (2.5-4.9); Potassium, Blood 3.6 mmol/L (3.5-5.5); Sodium, Blood 135 mmol/L (136-145)
--- NOTE | 2020-07-15 17:18 | NUR ---
SHIFT SUMMARY PT IS AGREEABLE TO SNF BUT OVERALL GETS EXCITED WHEN TALKING ABOUT GOALS OF GOING HOME. SAT UP IN CHAIR TODAY. REPORTS HIS COUGH IS GETTING BETTER. VSS.
--- NOTE | 2020-07-16 04:22 | NUR ---
SHIFT SUMMARY ASSUMED CARE OF PT AT 1900. PT IS A/OX4. HEART SOUNDS REGULAR, LUNG SOUDNS CLEAR. PT C/O DIARRHEA. PT USED CONDOM CAATH T/O THE NIGHT. PT WAS FINALLY ABLE TO GET SOME SLEEP TONIGHT. PT C/O ANXIETY ONCE, MEDICATED PER EMAR. CALL LIGHT IN REACH, BED IN LOWEST POSITION.
[2020-07-16 05:30] LABS: Hematocrit 24.9 % (37.0-53.0)
[2020-07-16 05:51] LABS: Albumin, Blood 2.4 g/dL (3.4-5.0); Anion Gap 6 mmol/L (6-16); Blood Urea Nitrogen 36 mg/dL (8-24); Bun/Creatinine Ratio 12.6 (12.0-20.0); CO2, Blood 26 mmol/L (21-32); Calcium, Blood 8.6 mg/dL (8.5-10.1); Chloride, Blood 102 mmol/L (98-108); Creatinine, Blood 2.86 mg/dL (0.60-1.20); Glomerular Filtration Rate 23 (60-); Glucose, Blood 110 mg/dL (70-99); Magnesium, Blood 1.8 mg/dL (1.6-2.4); Phosphorus, Blood 3.9 mg/dL (2.5-4.9); Sodium, Blood 134 mmol/L (136-145)
[2020-07-16] MEDS ORDERED: POTA20PAC PO (08:42)
[2020-07-16] MEDS ORDERED: LEVO750 PO (08:43)
[2020-07-16] MEDS ORDERED: B-1100 M1 PO (08:44)
--- NOTE | 2020-07-16 10:11 | NUR ---
DIZZINESS AND TACHYCARDIA: PATIENT COMPLAINED OF SEVERE DIZZINESS WHILE STANDING TO TRANSFER TO BS. PATIENTS STATES "I'M SO DIZZY THAT I CAN BARELY STAND IT". CONTRACT ANALYST CALLED AND NOTIFIED THIS RN THAT PATIENT HAD TACHYCARDIA UP TO 160'S AND WAS SUSTAINING IN THE 140'S. PATIENT HAD BM AND WAS TRANSFERRED BACK TO BED. SYMPTOMS SUBSIDED. HR 93, AFIB AT THIS TIME. DR. RICE NOTIFIED AT 0940, AND STATES PLAN TO D/C PATIENT TO REHAB TODAY.
[2020-07-16 12:33] LABS: SARS-Cov-2 (COVID-19) PCR, MMC NEGATIVE (NEGATIVE)
--- NOTE | 2020-07-16 16:46 | NUR ---
07/16/20- per chart review with Dr. Allen, pt could potentially d/c to SNF today. Was stopped in the augustine by PT and nurse who report that the pt doesn't have a rehabable need and that his problem is hypotension when he goes from supine to sitting and sitting to standing. They have been working with him on how to not get dizzy or pass out. They report that the pt's has returned his wheelchair and no longer has one accessible. They expressed their concerns and that the likelyhood of him being able to walk again is slim due to problems with his knee. Informed them that was paying for the wheelchair out of pocket (renting) and she wanted to return it with the hopes that if he needs one, they can go through a different company where insurance can help cover the cost. They expressed understanding and that pt may not fully understand this is why she returned w/c. They stated that they would reach out to Dr. Allen with their concerns, that his issues are related to his heart condition and not physical abilities to get around. Dr. Allen was going to meet with the pt and his to discuss his needs during visiting hours. -darrin
[2020-07-17 05:21] LABS: Hematocrit 24.6 % (37.0-53.0); Hemoglobin 7.8 g/dL (13.5-17.5)
[2020-07-17 05:46] LABS: Magnesium, Blood 1.8 mg/dL (1.6-2.4)
[2020-07-17 05:47] LABS: Albumin, Blood 2.4 g/dL (3.4-5.0); Anion Gap 5 mmol/L (6-16); Blood Urea Nitrogen 39 mg/dL (8-24); Bun/Creatinine Ratio 12.6 (12.0-20.0); CO2, Blood 28 mmol/L (21-32); Calcium, Blood 8.3 mg/dL (8.5-10.1); Chloride, Blood 103 mmol/L (98-108); Glomerular Filtration Rate 21 (60-); Glucose, Blood 111 mg/dL (70-99); Phosphorus, Blood 4.4 mg/dL (2.5-4.9); Potassium, Blood 4.3 mmol/L (3.5-5.5); Sodium, Blood 136 mmol/L (136-145)
--- NOTE | 2020-07-17 06:06 | NUR ---
SUMMARY: PT A/OX4, CALLS APPROPRIATELY AND SPECIFIES NEEDS. NO S/S ORTHO HYPOTENSION OR C/O DIZZYNESS TONIGHT BUT PT WASN'T OOB THIS SHIFT. HE DANGLED AT EOB W/O COMPLAINTS AND REPOSITIONED SELF IN BED. PT USED BED GRANT W/1PA FOR X2 FORMED BM'S AND CONDOM CATH IS INTACT DRAINING JUSTINO URINE. HE REMAINS AFIB ON TELEMETRY W/HR 70'S-80'S BPM. LEGS REMAIN SWOLLEN W/INTERNAL ROTATION NOTED TO L.FOOT. TYLENOL RECIEVED FOR TOLERABLE RELIEF OF NECK PAIN. VSS/AFEBRILE AND NO ACUTE CHANGES. WCTM AND REPORT TO DAY RN.
--- NOTE | 2020-07-17 15:59 | NUR ---
07/17/20- Spoke with Allegra at [facility], she reports that Bashir at [facility] was going to look at getting a bed for the pt on Thu. If there is no bed at [facility], they would look at [facility] but would need to switch insurance authorization to [facility].per chart review with Dr. Allen, she feels that pt is stable to d/c. Called Allegra with [facility] and there are no male beds available. Will have to see if family is agreeable with looking for SNF outside the area. -darrin
--- NOTE | 2020-07-17 17:07 | NUR ---
NO COMPLAINTS OF DIZZINESS. IMPROVED ABILITY TO STAND AND TRANSFER. UP TO CHAIR FOR ALL MEALS TODAY.
--- NOTE | 2020-07-18 04:25 | NUR ---
MANAGER REGIONAL SUMMARY PT A/O X4. SLEPT OFF AND ON THROUGHOUT THE NIGHT. DENIES PAIN, NAUSEA, SOB. ROOM AIR MAINTAINING GOOD 02 SATS. A. FIB AVG IN THE 80'S PER WATER RESOURCE CONSULTANT. CONDOM KHADRA IN PLACE. PT HAD ONE BM TONIGHT- FORMED AND SOFT PER REAL ESTATE AGENT/BROKER. USES CALL LIGHT APPROPRIATELY. CALL LIGHT WITHIN REACH, BED ALARM ON. WILL CONTINUE TO MONITOR.
[2020-07-18 05:17] LABS: Hematocrit 23.1 % (37.0-53.0); Hemoglobin 7.4 g/dL (13.5-17.5)
[2020-07-18 05:43] LABS: Albumin, Blood 2.4 g/dL (3.4-5.0); Anion Gap 7 mmol/L (6-16); Blood Urea Nitrogen 45 mg/dL (8-24); Bun/Creatinine Ratio 14.8 (12.0-20.0); CO2, Blood 25 mmol/L (21-32); Calcium, Blood 8.7 mg/dL (8.5-10.1); Chloride, Blood 102 mmol/L (98-108); Creatinine, Blood 3.05 mg/dL (0.60-1.20); Glomerular Filtration Rate 22 (60-); Glucose, Blood 118 mg/dL (70-99); Magnesium, Blood 1.9 mg/dL (1.6-2.4); Phosphorus, Blood 4.6 mg/dL (2.5-4.9); Potassium, Blood 3.9 mmol/L (3.5-5.5); Sodium, Blood 134 mmol/L (136-145)
[2020-07-18 12:09] LABS: SARS-Cov-2 (COVID-19) PCR, MMC NEGATIVE (NEGATIVE)
--- NOTE | 2020-07-18 13:45 | NUR ---
IV AND TELE DISCONTINUED IN PREP FOR DISCHARGE TO SNF THIS AFTERNOON.
--- NOTE | 2020-07-18 16:30 | NUR ---
Update 07/18/20 - Arranged for change in authorization to [facility] per request of [facility]. Pt. will be transferred to facility at 4:30pm by [facility] transport services. All discharge orders have been faxed to [facility] and given to floor nurse to send with pt. to facility. CATHERINE team will schedule pt. for F/U visit either by telehealth equipment facilitated by chronic care management or in office.
--- NOTE | 2020-07-18 16:48 | NUR ---
PATIENT WAS PICKED UP BY TRANSPORT AND TAKEN BY W/C VAN TO [facility] @ [phone]. WAS AT SIDE AT DISCHARGE.
--- NOTE | 2020-07-18 17:22 | NUR ---
CALLED AND GAVE REPORT TO JOAN AT [facility] @ [phone].
== END 2020-07-18 16:45 | DRG 371 ==
LOC: ER 05:10 → MEDS 05:11 → ENPENDDIS 07-16 12:01 → MEDS 07-18 16:45
PROVIDERS: Emergency Medicine; Family Medicine; Hospitalist; Internal Medicine Nephrology; ADMIT Family Medicine
DX: A04.72 Enterocolitis due to Clostridium difficile, not specified as recurrent (principal); J18.9 Pneumonia, unspecified organism; N18.4 Chronic kidney disease, stage 4 (severe); I50.42 Chronic combined systolic (congestive) and diastolic (congestive) heart failure; I13.0 Hypertensive heart and chronic kidney disease with heart failure and stage 1 through stage 4 chronic kidney disease, or unspecified chronic kidney disease; E87.1 Hypo-osmolality and hyponatremia; I42.6 Alcoholic cardiomyopathy; Z20.822 Contact with and (suspected) exposure to COVID-19; E87.6 Hypokalemia; I48.0 Paroxysmal atrial fibrillation; D69.6 Thrombocytopenia, unspecified; G62.1 Alcoholic polyneuropathy; E87.5 Hyperkalemia; Z79.01 Long term (current) use of anticoagulants; D63.1 Anemia in chronic kidney disease; F10.20 Alcohol dependence, uncomplicated; I95.1 Orthostatic hypotension; Z88.1 Allergy status to other antibiotic agents; Z88.8 Allergy status to other drugs, medicaments and biological substances; I73.9 Peripheral vascular disease, unspecified; Z98.890 Other specified postprocedural states; Z87.891 Personal history of nicotine dependence; Z79.899 Other long term (current) drug therapy; Z88.6 Allergy status to analgesic agent; Z79.82 Long term (current) use of aspirin; N40.0 Benign prostatic hyperplasia without lower urinary tract symptoms; F41.9 Anxiety disorder, unspecified; E83.42 Hypomagnesemia; E83.39 Other disorders of phosphorus metabolism
CPT/HCPCS: 0097U; 36415; 71045; 71046; 71250; 76770; 80048; 80053; 80069; 81001; 82274; 82607; 82728; 82746; 83540; 83550; 83605; 83690; 83735; 83880; 84100; 84132; 84145; 85014; 85018; 85025; 85045; 87040; 87086; 87324; 87449; 93005; 93010; 93306; 94762; 96361; 96365; 96366; 96375; 97110; 97161; 97166; 97530; 97535; 99285-25; A9270; G0103; G0378; J0881; J1956; J2405; J2916; J3475; J7030; U0004

== ENCOUNTER 2020-08-07 00:48 | Day surgery (SDC) | payer MEDICARE ==
[~2020-08-07 00:48] MED LIST changes: +LEVO750 PO; +MELATONIN3 M1 PO; +POTA20PAC PO; +VANCOCIN HCL125 MG PO
== END 2020-08-07 22:51 | disposition home or self-care (01) ==
LOC: WOUND 00:48
DX: L89.892 Pressure ulcer of other site, stage 2 (principal); G60.3 Idiopathic progressive neuropathy; I48.0 Paroxysmal atrial fibrillation; I13.0 Hypertensive heart and chronic kidney disease with heart failure and stage 1 through stage 4 chronic kidney disease, or unspecified chronic kidney disease; I50.9 Heart failure, unspecified; N18.30 Chronic kidney disease, stage 3 unspecified; Z88.1 Allergy status to other antibiotic agents; Z88.8 Allergy status to other drugs, medicaments and biological substances
CPT/HCPCS: A9270; G0463

== ENCOUNTER 2020-08-15 04:27 | Day surgery (SDC) | payer MEDICARE | END 2020-08-15 23:04 | disposition home or self-care (01) | LOC: WOUND 04:27 | DX: L89.892 Pressure ulcer of other site, stage 2 (principal); G60.3 Idiopathic progressive neuropathy | CPT/HCPCS: A9270 ==

== ENCOUNTER 2020-08-22 02:57 | Day surgery (SDC) | payer MEDICARE | END 2020-08-22 23:34 | disposition home or self-care (01) | LOC: WOUND 02:57 | DX: L89.892 Pressure ulcer of other site, stage 2 (principal); G60.3 Idiopathic progressive neuropathy; I87.2 Venous insufficiency (chronic) (peripheral); M25.561 Pain in right knee; I13.0 Hypertensive heart and chronic kidney disease with heart failure and stage 1 through stage 4 chronic kidney disease, or unspecified chronic kidney disease; I50.9 Heart failure, unspecified; N18.30 Chronic kidney disease, stage 3 unspecified; I48.0 Paroxysmal atrial fibrillation; G47.33 Obstructive sleep apnea (adult) (pediatric); Z88.8 Allergy status to other drugs, medicaments and biological substances; Z88.1 Allergy status to other antibiotic agents | CPT/HCPCS: A9270 ==

== ENCOUNTER 2020-08-29 01:18 | Day surgery (SDC) | payer MEDICARE | END 2020-08-29 23:48 | disposition home or self-care (01) | LOC: WOUND 01:18 | DX: L89.892 Pressure ulcer of other site, stage 2 (principal); G60.3 Idiopathic progressive neuropathy; I87.2 Venous insufficiency (chronic) (peripheral); I48.0 Paroxysmal atrial fibrillation; I12.0 Hypertensive chronic kidney disease with stage 5 chronic kidney disease or end stage renal disease; I50.9 Heart failure, unspecified; N18.30 Chronic kidney disease, stage 3 unspecified; G47.33 Obstructive sleep apnea (adult) (pediatric); Z88.1 Allergy status to other antibiotic agents | CPT/HCPCS: A9270; G0463 ==

== ENCOUNTER 2020-09-26 01:30 | Day surgery (SDC) | payer MEDICARE | END 2020-09-26 23:07 | disposition home or self-care (01) | LOC: WOUND 01:30 | DX: L89.892 Pressure ulcer of other site, stage 2 (principal); G60.3 Idiopathic progressive neuropathy; I87.2 Venous insufficiency (chronic) (peripheral); I48.91 Unspecified atrial fibrillation; I12.9 Hypertensive chronic kidney disease with stage 1 through stage 4 chronic kidney disease, or unspecified chronic kidney disease; I50.9 Heart failure, unspecified; N18.30 Chronic kidney disease, stage 3 unspecified; G47.33 Obstructive sleep apnea (adult) (pediatric); E11.42 Type 2 diabetes mellitus with diabetic polyneuropathy; Z88.1 Allergy status to other antibiotic agents | CPT/HCPCS: A9270 ==

== ENCOUNTER 2020-10-10 02:43 | Day surgery (SDC) | payer MEDICARE | END 2020-10-10 23:15 | disposition home or self-care (01) | LOC: WOUND 02:43 | DX: L89.892 Pressure ulcer of other site, stage 2 (principal); G60.3 Idiopathic progressive neuropathy; I87.2 Venous insufficiency (chronic) (peripheral); I48.0 Paroxysmal atrial fibrillation; I13.0 Hypertensive heart and chronic kidney disease with heart failure and stage 1 through stage 4 chronic kidney disease, or unspecified chronic kidney disease; I50.9 Heart failure, unspecified; N18.30 Chronic kidney disease, stage 3 unspecified; Z88.1 Allergy status to other antibiotic agents; Z88.8 Allergy status to other drugs, medicaments and biological substances | CPT/HCPCS: A9270 ==

== ENCOUNTER 2020-10-24 01:17 | Day surgery (SDC) | payer MEDICARE | END 2020-10-24 23:04 | disposition home or self-care (01) | LOC: WOUND 01:17 | DX: L89.892 Pressure ulcer of other site, stage 2 (principal); G60.3 Idiopathic progressive neuropathy; I87.2 Venous insufficiency (chronic) (peripheral) | CPT/HCPCS: A9270 ==

== ENCOUNTER 2020-11-19 05:56 | Day surgery (SDC) | payer MEDICARE | END 2020-11-19 23:37 | disposition home or self-care (01) | LOC: WOUND 05:56 | DX: L89.892 Pressure ulcer of other site, stage 2 (principal); G60.3 Idiopathic progressive neuropathy; I87.2 Venous insufficiency (chronic) (peripheral); I13.0 Hypertensive heart and chronic kidney disease with heart failure and stage 1 through stage 4 chronic kidney disease, or unspecified chronic kidney disease; I50.9 Heart failure, unspecified; N18.30 Chronic kidney disease, stage 3 unspecified; I48.0 Paroxysmal atrial fibrillation; G47.33 Obstructive sleep apnea (adult) (pediatric); E11.42 Type 2 diabetes mellitus with diabetic polyneuropathy | CPT/HCPCS: A9270 ==

== ENCOUNTER 2020-11-26 05:52 | Day surgery (SDC) | payer MEDICARE | END 2020-11-26 22:52 | disposition home or self-care (01) | LOC: WOUND 05:52 | DX: L89.892 Pressure ulcer of other site, stage 2 (principal); G60.3 Idiopathic progressive neuropathy; I87.2 Venous insufficiency (chronic) (peripheral); I48.0 Paroxysmal atrial fibrillation; I13.0 Hypertensive heart and chronic kidney disease with heart failure and stage 1 through stage 4 chronic kidney disease, or unspecified chronic kidney disease; I50.9 Heart failure, unspecified; N18.30 Chronic kidney disease, stage 3 unspecified; G62.9 Polyneuropathy, unspecified; E66.9 Obesity, unspecified | CPT/HCPCS: A9270 ==

== ENCOUNTER 2020-12-10 03:52 | Day surgery (SDC) | payer MEDICARE | END 2020-12-10 12:00 | disposition home or self-care (01) | LOC: WOUND 03:52 | DX: L89.892 Pressure ulcer of other site, stage 2 (principal); G60.3 Idiopathic progressive neuropathy; I87.2 Venous insufficiency (chronic) (peripheral); I48.0 Paroxysmal atrial fibrillation; I13.0 Hypertensive heart and chronic kidney disease with heart failure and stage 1 through stage 4 chronic kidney disease, or unspecified chronic kidney disease; I50.9 Heart failure, unspecified; N13.0 Hydronephrosis with ureteropelvic junction obstruction; G47.33 Obstructive sleep apnea (adult) (pediatric); E66.9 Obesity, unspecified; G62.9 Polyneuropathy, unspecified; G47.30 Sleep apnea, unspecified | CPT/HCPCS: G0463 ==

== ENCOUNTER → 2021-01-29 | Outpatient (CLI) | payer MEDICARE ==
[2021-01-29 16:19] LABS: White Blood Cells, Urine 0-2 /hpf (0-5)
[2021-01-29 16:20] LABS: Bacteria Few /hpf; Squamous Epithelial Cells Rare /hpf (Few)
[2021-01-30 09:29] LABS: Stool Occult Bld Immuno 1 Positive (NEGATIVE)
== END | disposition home or self-care (01) ==
LOC: LAB SHORT 15:03 → EDSTATUS 01-24 10:50 → LAB FUT 01-24 10:50
PROVIDERS: Family Medicine
DX: Z12.11 Encounter for screening for malignant neoplasm of colon (principal); R31.29 Other microscopic hematuria
CPT/HCPCS: 81015; 82274

== ENCOUNTER 2021-10-23 13:19 | Emergency (ER) | payer MEDICARE ==
[~2021-10-23] VITALS: Ht 188 cm; Wt 127.0 kg
[2021-10-23 14:11] LABS: BASOPHILS ABSOLUTE AUTO 0.09 K/mm3 (0.00-0.23); BASOPHILS PERCENT AUTO 1 % (0-2); EOSINOPHILS ABSOLUTE AUTO 0.19 K/mm3 (0.00-0.68); EOSINOPHILS PERCENT AUTO 3 % (0-6); Hematocrit 33.2 % (37.0-53.0); Hemoglobin 11.4 g/dL (13.5-17.5); IMMATURE GRAN ABSOLUTE AUTO 0.04 K/mm3 (0.00-0.10); IMMATURE GRAN PERCENT AUTO 1 % (0-1); LYMPHOCYTES ABSOLUTE AUTO 1.82 K/mm3 (0.84-5.20); LYMPHOCYTES PERCENT AUTO 25 % (21-46); MONOCYTES ABSOLUTE AUTO 1.04 K/mm3 (0.16-1.47); MONOCYTES PERCENT AUTO 14 % (4-13); Mean Corpuscular HGB 35.4 pg (26.0-34.0); Mean Corpuscular HGB Conc 34.3 g/dL (31.5-36.5); Mean Corpuscular Volume 103 fL (80-100); Mean Platelet Volume 9.9 fL (9.1-12.4); NEUTROPHILS ABSOLUTE AUTO 4.26 K/mm3 (1.96-9.15); NEUTROPHILS PERCENT AUTO 57 % (41-73); Platelet Count 108 K/mm3 (150-400); RDW Coefficient Variation 12.9 % (11.7-14.2); RDW Standard Deviation 48.3 fL (35.1-46.3); Red Blood Cell Count 3.22 M/mm3 (4.30-5.90); White Blood Cell Count 7.44 K/mm3 (4.00-11.30)
[2021-10-23 14:31] LABS: Albumin, Blood 3.4 g/dL (3.4-5.0); Albumin/Globulin Ratio 0.8 (0.8-1.8); Bilirubin, Total 0.8 mg/dL (0.1-1.0); Bun/Creatinine Ratio 15.1 (12.0-20.0); Calcium, Blood 9.1 mg/dL (8.5-10.1); Creatinine, Blood 2.05 mg/dL (0.60-1.20); Potassium, Blood 2.9 mmol/L (3.5-5.5); Total Protein, Blood 7.4 g/dL (6.4-8.2)
[2021-10-23] MEDS ORDERED: Bactrim Ds Tab1 EACH PO (15:37)
== END 2021-10-23 15:44 | disposition home or self-care (01) ==
LOC: ER 13:19
PROVIDERS: Physician Assistant
DX: L03.116 Cellulitis of left lower limb (principal); I11.0 Hypertensive heart disease with heart failure; I50.9 Heart failure, unspecified; Z79.899 Other long term (current) drug therapy; Z79.01 Long term (current) use of anticoagulants; Z88.1 Allergy status to other antibiotic agents; Z88.8 Allergy status to other drugs, medicaments and biological substances; Z87.891 Personal history of nicotine dependence
CPT/HCPCS: 36415; 73701; 80053; 85025

== ENCOUNTER 2021-11-26 05:59 | Emergency (ER) | payer MEDICARE ==
[~2021-11-26] VITALS: Ht 188 cm; Wt 120.2 kg
[~2021-11-26 05:59] MED LIST changes: +Bactrim Ds Tab1 EACH PO
[2021-11-26 06:25] LABS: BASOPHILS ABSOLUTE AUTO 0.05 K/mm3 (0.00-0.23); BASOPHILS PERCENT AUTO 1 % (0-2); EOSINOPHILS ABSOLUTE AUTO 0.03 K/mm3 (0.00-0.68); EOSINOPHILS PERCENT AUTO 1 % (0-6); Hematocrit 30.5 % (37.0-53.0); Hemoglobin 10.6 g/dL (13.5-17.5); IMMATURE GRAN ABSOLUTE AUTO 0.03 K/mm3 (0.00-0.10); IMMATURE GRAN PERCENT AUTO 1 % (0-1); LYMPHOCYTES ABSOLUTE AUTO 0.85 K/mm3 (0.84-5.20); LYMPHOCYTES PERCENT AUTO 17 % (21-46); MONOCYTES ABSOLUTE AUTO 0.65 K/mm3 (0.16-1.47); MONOCYTES PERCENT AUTO 13 % (4-13); Mean Corpuscular HGB 36.8 pg (26.0-34.0); Mean Corpuscular HGB Conc 34.8 g/dL (31.5-36.5); Mean Corpuscular Volume 106 fL (80-100); Mean Platelet Volume 10.5 fL (9.1-12.4); NEUTROPHILS PERCENT AUTO 67 % (41-73); Platelet Count 55 K/mm3 (150-400); RDW Coefficient Variation 14.3 % (11.7-14.2); RDW Standard Deviation 55.7 fL (35.1-46.3); Red Blood Cell Count 2.88 M/mm3 (4.30-5.90); White Blood Cell Count 4.91 K/mm3 (4.00-11.30)
[2021-11-26 06:44] LABS: Albumin, Blood 3.7 g/dL (3.4-5.0); Bilirubin, Total 2.4 mg/dL (0.1-1.0); Bun/Creatinine Ratio 19.5 (12.0-20.0); Calcium, Blood 9.1 mg/dL (8.5-10.1); Creatinine, Blood 1.95 mg/dL (0.60-1.20); Globulin, Blood 3.6 g/dL (2.2-4.0); Potassium, Blood 3.8 mmol/L (3.5-5.5); Total Protein, Blood 7.3 g/dL (6.4-8.2)
[2021-12-10] MEDS ORDERED: FOLI1 PO (20:02)
[2021-12-10] MEDS ORDERED: TAMS.4ER PO (20:03)
[2021-12-10] MEDS ORDERED: BUME2 PO (20:03)
== END 2021-11-26 08:30 | disposition home or self-care (01) ==
LOC: ER 05:59
PROVIDERS: Emergency Medicine
DX: R42 Dizziness and giddiness (principal); I95.1 Orthostatic hypotension; I13.0 Hypertensive heart and chronic kidney disease with heart failure and stage 1 through stage 4 chronic kidney disease, or unspecified chronic kidney disease; N18.30 Chronic kidney disease, stage 3 unspecified; I50.9 Heart failure, unspecified; D64.9 Anemia, unspecified; D69.6 Thrombocytopenia, unspecified; F10.21 Alcohol dependence, in remission; Z87.891 Personal history of nicotine dependence; Z88.1 Allergy status to other antibiotic agents; Z88.8 Allergy status to other drugs, medicaments and biological substances; Z79.01 Long term (current) use of anticoagulants; Z79.899 Other long term (current) drug therapy
CPT/HCPCS: 71045; 80053; 83880; 84484; 85025; 93005; 93010; 99285-25